=== PATIENT | male | born 1960 | race Caucasian/White ===

== ENCOUNTER → 2019-12-03 08:27 | Outpatient (BNVA) | payer OTHER, SELFPAY | PROVIDERS: PCP Internal Medicine; Referring Provider Internal Medicine; Visit Provider Internal Medicine Endocrinology, Diabetes & Metabolism | DX: Z13.89 Encounter for screening for other disorder (principal) | CPT/HCPCS: 99214 ==

== ENCOUNTER 2019-12-10 08:55 | Outpatient (REF) | payer OTHER, SELFPAY ==
[2019-12-10 09:49] LABS: Anion Gap 13 (12-20); Blood Urea Nitrogen 15 mg/dL (9-16); Calcium 8.6 mg/dL (8.4-10.2); Carbon Dioxide 25 mmol/L (22-29); Chloride 104 mmol/L (96-108); Estimated Glomerular Filt Rate > 60; Glucose Fasting 121 mg/dL (60-99); Potassium 4.4 mmol/l (3.3-5.1); Sodium 138 mmol/L (135-145)
[2019-12-10 10:11] LABS: Free T4 (Free Thyroxine) 0.96 ng/dL (0.71-1.85); Thyroid Stimulating Hormone 1.26 mIU/mL (0.32-4.0)
[2019-12-12 01:11] LABS: Follicle Stimulating Hormone 6.1 mIU/mL (1.6-8.0); Lutenizing Hormone 3.5 mIU/mL (1.6-15.2); Prolactin 15.2 ng/mL (2.0-18.0)
[2019-12-13 18:52] LABS: Sex Hormone Binding Globulin 27 nmol/L (22-77)
[2019-12-15 15:07] LABS: IGF-1 (Somatomedin C) 122 ng/mL (41-279); IGF-1 Z Score (Male) -0.1 SD (-2.0 - +2.0)
[2019-12-16 17:26] LABS: Testosterone, Free 49.9 pg/mL (35.0-155.0); Testosterone, Total 337 ng/dL (250-1100)
== END 2019-12-10 08:56 | disposition home or self-care (01) ==
LOC: HO.LAB 08:55
PROVIDERS: PCP Internal Medicine; Visit Provider Internal Medicine Endocrinology, Diabetes & Metabolism
DX: E22.1 Hyperprolactinemia (principal)
CPT/HCPCS: 80048; 82533; 83001; 83002; 84146; 84270; 84305; 84402; 84403; 84439; 84443

== ENCOUNTER 2019-12-14 09:22 | Outpatient (REF) | payer OTHER, SELFPAY ==
--- NOTE | 2019-12-14 09:40 | MR_ITS ---
EXAMINATION: MR BRAIN WITHOUT AND WITH CONTRAST CLINICAL INFORMATION: Hyperprolactinemia. COMPARISON: MRI studies dating back to 02/21/2017. TECHNIQUE: Multiplanar, multisequential imaging was obtained without and with intravenous administration of contrast. Intravenous contrast: Gadavist 5 mL. FINDINGS: Midline infrasellar soft tissue abnormality measuring approximately 9 x 7 x 6 mm in size is relatively stable with decreased differential enhancement relative to the pituitary gland superiorly. The infundibulum is midline in position. No diffusion abnormalities are identified to suggest an acute infarct. The ventricles are normal in size. No mass effect or midline shift is seen. Nonspecific mild white matter signal changes are stable. No extra-axial fluid collections are noted. The brainstem and cerebellum are normal. On postcontrast imaging, there is no abnormal parenchymal or leptomeningeal enhancement. The craniovertebral junction and marrow signal are normal. The mastoid air cells are aerated. There is mild to moderate mucosal thickening in the ethmoid and maxillary sinuses, more so on the left side. MR/MR head/brain wo/w con IMPRESSION: Stable midline 9 x 7 x 6 mm focus of soft tissue underlying the pituitary gland. Correlation with targeted CT imaging is recommended to better assess for an underlying dehiscence in the bony floor of the sella.
== END 2019-12-14 09:23 | disposition home or self-care (01) ==
LOC: HO.MRI 09:22
PROVIDERS: PCP Internal Medicine; Visit Provider Internal Medicine Endocrinology, Diabetes & Metabolism
DX: E22.1 Hyperprolactinemia (principal)
CPT/HCPCS: 70553; A9585

== ENCOUNTER → 2020-03-06 09:39 | Outpatient (BNVA) | payer OTHER, SELFPAY | PROVIDERS: PCP Internal Medicine; Visit Provider Internal Medicine Endocrinology, Diabetes & Metabolism ==

== ENCOUNTER 2020-04-07 08:08 | Outpatient (REF) | payer OTHER, SELFPAY ==
[2020-04-07 09:09] LABS: MANUAL DIFF FLAG NO
[2020-04-07 09:14] LABS: Basophils Percent Auto 0.2 % (0-2); Eosinophils Absolute Auto 0.1 X10*3/uL (0.0-0.4); Hematocrit 45.5 % (42-52); Hemoglobin 15.6 g/dl (14.0-18.0); Imm Gran Abs Auto 0.01 X10*3/uL (0.00-0.03); Imm Gran Pct Auto 0.2 % (0.0-0.4); Lymphocytes Absolute Auto 1.8 X10*3/uL (1.2-4.9); Lymphocytes Percent Auto 30.2 % (20-40); Mean Corpuscular HGB Conc 34.3 g/dl (31.0-36.0); Mean Corpuscular Hemoglobin 30.4 pg (27.0-33.0); Mean Corpuscular Volume 88.5 fL (80-98); Mean Platelet Volume 10.9 fL (9.4-12.4); Monocytes Absolute Auto 0.6 X10*3/uL (0.1-1.2); Monocytes Percent Auto 9.2 % (2-11); Neutrophils Absolute Auto 3.5 X10*3/uL (2.0-8.3); Neutrophils Percent Auto 59.2 % (45-73); Platelet Count 163 X10*3/uL (160-400); Red Blood Count 5.14 X10*6/uL (4.60-5.80); Red Cell Distribution Width 11.8 % (11.0-16.0)
[2020-04-07 09:23] LABS: Glucose Urine UA NEG (NEG); Leukocyte Esterase Urine NEG (NEG); Nitrite Urine NEG (NEG); PH 6.5 (5.0-8.0); Urine Blood NEG (NEG); Urine Ketones NEG (NEG); Urine Protein NEG (NEG-TRACE)
[2020-04-07 09:25] LABS: Appearance Urine CLEAR; Color Urine YELLOW
[2020-04-07 09:37] LABS: Mucus Urine TRACE /LPF; Squamous Epithelial Cell Urine 1+ /LPF; WBC Urine 0-2 /HPF (0-4)
[2020-04-07 09:43] LABS: Alanine Aminotransferase 17 U/L (0-40); Albumin Level 4.5 g/dL (3.5-5.0); Alkaline Phosphatase 73 U/L (39-117); Anion Gap 10 (12-20); Aspartate Amino Transferase 18 U/L (5-37); Bilirubin Total 2.4 mg/dL (0.0-1.0); Blood Urea Nitrogen 10 mg/dL (9-16); Calcium 9.2 mg/dL (8.4-10.2); Carbon Dioxide 30 mmol/L (22-29); Chloride 101 mmol/L (96-108); Cholesterol 113 mg/dL; Estimated Glomerular Filt Rate > 60; Glucose Fasting 113 mg/dL (60-99); HDL Cholesterol 38 mg/dL; LDL Cholesterol Calculated 56 mg/dl; Potassium 4.3 mmol/L (3.3-5.1); Sodium 137 mmol/L (135-145); Total Protein 7.2 g/dL (6.5-8.0); Triglycerides 97 mg/dL
[2020-04-07 09:58] LABS: TSH reflex Free T4 2.58 uIU/mL (0.32-4.0)
[2020-04-07 10:03] LABS: Creatinine Urine 193.78 mg/dL; Microalbum/Creatinine Ratio Ur 10.8 ug/mg cr
[2020-04-11 15:32] LABS: Adrenocorticotropic Hormone 39 pg/mL (6-50)
[2020-04-12 19:12] LABS: Testosterone, Free 60.9 pg/mL (35.0-155.0); Testosterone, Total 294 ng/dL (250-1100)
== END 2020-04-07 08:09 | disposition home or self-care (01) ==
LOC: HO.LAB 08:08
PROVIDERS: PCP Internal Medicine; Visit Provider Internal Medicine Endocrinology, Diabetes & Metabolism
DX: E22.1 Hyperprolactinemia (principal); E11.9 Type 2 diabetes mellitus without complications; I10 Essential (primary) hypertension; E78.5 Hyperlipidemia, unspecified; E80.6 Other disorders of bilirubin metabolism; I25.10 Atherosclerotic heart disease of native coronary artery without angina pectoris; E34.9 Endocrine disorder, unspecified; E66.9 Obesity, unspecified
CPT/HCPCS: 36415; 80053; 80061; 81001; 82024; 82043; 84146; 84402; 84403; 84443; 85025

== ENCOUNTER → 2020-09-04 10:19 | Outpatient (BNVA) | payer OTHER, SELFPAY | PROVIDERS: PCP Internal Medicine; Visit Provider Internal Medicine Endocrinology, Diabetes & Metabolism ==

== ENCOUNTER 2020-09-05 06:05 | Outpatient (REF) | payer OTHER, SELFPAY ==
[2020-09-05 07:05] LABS: MANUAL DIFF FLAG NO
[2020-09-05 07:11] LABS: Basophils Percent Auto 0.5 % (0-2); Eosinophils Absolute Auto 0.1 X10*3/uL (0.0-0.4); Eosinophils Percent Auto 1.3 % (0-4); Hematocrit 43.4 % (42-52); Hemoglobin 14.8 g/dl (14.0-18.0); Imm Gran Abs Auto 0.03 X10*3/uL (0.00-0.03); Imm Gran Pct Auto 0.5 % (0.0-0.4); Lymphocytes Absolute Auto 2.1 X10*3/uL (1.2-4.9); Lymphocytes Percent Auto 34.2 % (20-40); Mean Corpuscular HGB Conc 34.1 g/dl (31.0-36.0); Mean Corpuscular Hemoglobin 30.3 pg (27.0-33.0); Mean Corpuscular Volume 88.8 fL (80-98); Mean Platelet Volume 11.3 fL (9.4-12.4); Monocytes Absolute Auto 0.6 X10*3/uL (0.1-1.2); Neutrophils Absolute Auto 3.3 X10*3/uL (2.0-8.3); Neutrophils Percent Auto 53.5 % (45-73); Platelet Count 171 X10*3/uL (160-400); Red Blood Count 4.89 X10*6/uL (4.60-5.80); White Blood Count 6.1 X10*3/uL (4.8-10.8)
[2020-09-05 07:16] LABS: Estimated Average Glucose 140 mg/dL; Hemoglobin A1c % 6.5 %
[2020-09-05 07:20] LABS: Color Urine YELLOW; Glucose Urine UA NEG (NEG); Leukocyte Esterase Urine NEG (NEG); Nitrite Urine NEG (NEG); Specific Gravity - Urine 1.025 (1.005-1.025); Urine Blood NEG (NEG); Urine Ketones NEG (NEG); Urine Protein NEG (NEG-TRACE)
[2020-09-05 07:22] LABS: Appearance Urine CLEAR
[2020-09-05 07:37] LABS: Creatinine Urine 157.59 mg/dL
[2020-09-05 07:41] LABS: Alanine Aminotransferase 25 U/L (0-40); Albumin Level 4.3 g/dL (3.5-5.0); Alkaline Phosphatase 76 U/L (39-117); Anion Gap 12 (12-20); Aspartate Amino Transferase 20 U/L (5-37); Bilirubin Total 1.5 mg/dL (0.0-1.0); Blood Urea Nitrogen 11 mg/dL (9-16); Calcium 9.2 mg/dL (8.4-10.2); Carbon Dioxide 28 mmol/L (22-29); Chloride 104 mmol/L (96-108); Cholesterol 139 mg/dL; Estimated Glomerular Filt Rate > 60; Glucose Fasting 136 mg/dL (60-99); HDL Cholesterol 41 mg/dL; LDL Cholesterol Calculated 75 mg/dl; Potassium 4.4 mmol/L (3.3-5.1); Sodium 140 mmol/L (135-145); Total Protein 7.1 g/dL (6.5-8.0); Triglycerides 116 mg/dL
[2020-09-05 08:08] LABS: TSH reflex Free T4 3.89 uIU/mL (0.32-4.0)
[2020-09-05 08:33] LABS: Prostate Specific Antigen 0.54 ng/mL (<0.05-4.0)
[2020-09-06 10:36] LABS: Prolactin 10.3 ng/mL (2.0-18.0)
== END 2020-09-05 06:06 | disposition home or self-care (01) ==
LOC: HO.LAB 06:05
PROVIDERS: Absent Provider Internal Medicine Endocrinology, Diabetes & Metabolism; PCP Internal Medicine; Visit Provider Internal Medicine
DX: E22.1 Hyperprolactinemia (principal); E11.9 Type 2 diabetes mellitus without complications; E78.00 Pure hypercholesterolemia, unspecified; E66.9 Obesity, unspecified; N40.0 Benign prostatic hyperplasia without lower urinary tract symptoms; R97.20 Elevated prostate specific antigen [PSA]; I25.10 Atherosclerotic heart disease of native coronary artery without angina pectoris; E80.6 Other disorders of bilirubin metabolism
CPT/HCPCS: 36415; 80053; 80061; 81003; 82043; 83036; 84146; 84153; 84443; 85025

== ENCOUNTER 2021-05-24 07:15 | Outpatient (REF) | payer OTHER, SELFPAY ==
[2021-05-24 07:41] LABS: MANUAL DIFF FLAG NO
[2021-05-24 08:11] LABS: Basophils Percent Auto 0.3 % (0-2); Eosinophils Absolute Auto 0.1 X10*3/uL (0.0-0.4); Eosinophils Percent Auto 1.5 % (0-4); Hematocrit 44.8 % (42.0-52.0); Hemoglobin 15.2 g/dl (14.0-18.0); Imm Gran Abs Auto 0.02 X10*3/uL (0.00-0.03); Imm Gran Pct Auto 0.3 % (0.0-0.4); Lymphocytes Absolute Auto 2.1 X10*3/uL (1.2-4.9); Lymphocytes Percent Auto 32.4 % (20-40); Mean Corpuscular HGB Conc 33.9 g/dl (31.0-36.0); Mean Corpuscular Hemoglobin 29.5 pg (27.0-33.0); Mean Platelet Volume 10.7 fL (9.4-12.4); Monocytes Absolute Auto 0.6 X10*3/uL (0.1-1.2); Monocytes Percent Auto 9.7 % (2-11); Neutrophils Absolute Auto 3.7 x10*3/uL (2.0-8.3); Neutrophils Percent Auto 55.8 % (45-73); Platelet Count 168 X10*3/uL (160-400); Red Blood Count 5.15 X10*6/uL (4.60-5.80); Red Cell Distribution Width 12.2 % (11.0-16.0); White Blood Count 6.6 X10*3/uL (4.8-10.8)
[2021-05-24 08:25] LABS: Estimated Average Glucose 140 mg/dL; Hemoglobin A1c % 6.5 %
[2021-05-24 08:34] LABS: Alanine Aminotransferase 18 U/L (0-40); Albumin Level 4.4 g/dL (3.5-5.0); Alkaline Phosphatase 72 U/L (39-117); Anion Gap 12 (12-20); Aspartate Amino Transferase 18 U/L (5-37); Bilirubin Total 2.1 mg/dL (0.0-1.0); Blood Urea Nitrogen 15 mg/dL (9-16); Calcium 9.6 mg/dL (8.4-10.2); Carbon Dioxide 28 mmol/L (22-29); Chloride 103 mmol/L (96-108); Cholesterol 129 mg/dL; Estimated Glomerular Filt Rate > 60; Glucose Fasting 135 mg/dL (60-99); HDL Cholesterol 38 mg/dL; LDL Cholesterol Calculated 67 mg/dl; Potassium 4.8 mmol/L (3.3-5.1); Sodium 138 mmol/L (135-145); Total Protein 7.2 g/dL (6.5-8.0); Triglycerides 121 mg/dL
[2021-05-24 08:56] LABS: TSH reflex Free T4 2.59 uIU/mL (0.32-4.0); Vitamin D 25-OH Total 19.4 ng/mL (>30)
[2021-05-24 09:58] LABS: Appearance Urine HAZY; Color Urine YELLOW; Glucose Urine UA NEG (NEG); Leukocyte Esterase Urine NEG (NEG); Nitrite Urine NEG (NEG); Specific Gravity - Urine >= 1.030 (1.005-1.025); Urine Blood NEG (NEG); Urine Ketones NEG (NEG); Urine Protein NEG (NEG-TRACE)
[2021-05-24 10:37] LABS: Creatinine Urine 209.08 mg/dL; Microalbum/Creatinine Ratio Ur 17.2 ug/mg cr
== END 2021-05-24 07:16 | disposition home or self-care (01) ==
LOC: HO.LAB 07:15
PROVIDERS: PCP Internal Medicine; Visit Provider Internal Medicine
DX: E55.9 Vitamin D deficiency, unspecified (principal); E78.00 Pure hypercholesterolemia, unspecified; E11.9 Type 2 diabetes mellitus without complications; I10 Essential (primary) hypertension
CPT/HCPCS: 36415; 80053; 80061; 81003; 82043; 82306; 83036; 84443; 85025

== ENCOUNTER 2021-09-21 06:06 | Outpatient (REF) | payer OTHER, SELFPAY ==
[2021-09-22 21:02] LABS: Prolactin 11.5 ng/mL (2.0-18.0)
== END 2021-09-21 06:07 | disposition home or self-care (01) ==
LOC: HO.LAB 06:06
PROVIDERS: PCP Internal Medicine; Visit Provider Internal Medicine Endocrinology, Diabetes & Metabolism
DX: E22.1 Hyperprolactinemia (principal)
CPT/HCPCS: 36415; 84146

== ENCOUNTER → 2021-09-25 08:21 | Outpatient (BNVA) | payer OTHER, SELFPAY | PROVIDERS: PCP Internal Medicine; Visit Provider Internal Medicine Endocrinology, Diabetes & Metabolism | DX: D49.7 Neoplasm of unspecified behavior of endocrine glands and other parts of nervous system (principal) | CPT/HCPCS: 99212 ==

== ENCOUNTER 2021-11-05 09:36 | Outpatient (REF) | payer OTHER, SELFPAY ==
--- NOTE | ~2021-11-05 | MR_ITS ---
EXAMINATION: MR BRAIN WITHOUT AND WITH CONTRAST CLINICAL INFORMATION: Pituitary adenoma. COMPARISON: Brain MRI 12/14/2019. TECHNIQUE: Multiplanar MR imaging of the brain was performed without and with contrast. A total of 5 mm Gadavist was utilized for this examination. FINDINGS: Dedicated high-resolution imaging through the sella turcica demonstrates a nodular focus of heterogeneous enhancement located at the anterior inferior aspect of the pituitary tissue that bulges into the sphenoid sinus along the sphenoid sinus septum. Overall there has been no substantial change when compared to prior MR imaging from 12/14/2019. The overall height of the pituitary tissue remains within limits of normal variation. There is no suprasellar mass effect or chiasmatic compression. The pituitary stalk is midline. Cavernous sinuses enhance symmetric. Cavernous internal carotid artery flow voids are maintained. Postcontrast images of the whole brain reveal no abnormal mass or enhancement within the intracranial compartment. No intracranial mass effect or midline shift. Lateral and third ventricles are normal. No hydrocephalus. Midline structures including the cervicomedullary junction are normal. No acute bone marrow signal changes. There are a few scattered foci of T2 FLAIR signal hyperintensity within the periventricular white matter. No acute territorial infarct. Intracranial vascular flow voids are grossly maintained. There is no mastoid or middle ear effusion. Mild paranasal sinus disease primarily affecting the ethmoid air cells and maxillary sinuses. MR/MR head/brain wo/w con IMPRESSION: Stable examination. The size of a heterogeneously enhancing intrasellar lesion located at the anterior and inferior aspect of the sella turcica has remained stable when compared to most recent prior brain MRI from 12/14/2019.
== END 2021-11-05 09:37 | disposition home or self-care (01) ==
LOC: HO.MRI 09:36
PROVIDERS: Visit Provider Internal Medicine Endocrinology, Diabetes & Metabolism
DX: D49.7 Neoplasm of unspecified behavior of endocrine glands and other parts of nervous system (principal)
CPT/HCPCS: 70553; A9585

== ENCOUNTER 2021-12-31 06:12 | Outpatient (REF) | payer OTHER, SELFPAY ==
[2021-12-31 06:20] LABS: MANUAL DIFF FLAG NO
[2021-12-31 07:43] LABS: Basophils Percent Auto 0.4 % (0-2); Eosinophils Absolute Auto 0.1 X10*3/uL (0.0-0.4); Eosinophils Percent Auto 0.9 % (0-4); Hematocrit 43.8 % (42.0-52.0); Hemoglobin 15.6 g/dl (14.0-18.0); Imm Gran Abs Auto 0.01 X10*3/uL (0.00-0.03); Imm Gran Pct Auto 0.1 % (0.0-0.4); Lymphocytes Absolute Auto 2.2 X10*3/uL (1.2-4.9); Mean Corpuscular HGB Conc 35.6 g/dl (31.0-36.0); Mean Corpuscular Hemoglobin 30.5 pg (27.0-33.0); Mean Corpuscular Volume 85.7 fL (80.0-98.0); Mean Platelet Volume 11.4 fL (9.4-12.4); Monocytes Absolute Auto 0.5 X10*3/uL (0.1-1.2); Neutrophils Absolute Auto 3.9 x10*3/uL (2.0-8.3); Neutrophils Percent Auto 57.6 % (45-73); Platelet Count 166 X10*3/uL (160-400); Red Blood Count 5.11 X10*6/uL (4.60-5.80); Red Cell Distribution Width 11.6 % (11.0-16.0); White Blood Count 6.8 X10*3/uL (4.8-10.8)
[2021-12-31 08:09] LABS: Estimated Average Glucose 183 mg/dL
[2021-12-31 08:31] LABS: Alanine Aminotransferase 31 U/L (0-40); Albumin Level 4.5 g/dL (3.5-5.0); Alkaline Phosphatase 81 U/L (39-117); Anion Gap 15 (12-20); Aspartate Amino Transferase 18 U/L (5-37); Bilirubin Total 2.2 mg/dL (0.0-1.0); Blood Urea Nitrogen 12 mg/dL (9-16); Calcium 9.4 mg/dL (8.4-10.2); Carbon Dioxide 28 mmol/L (22-29); Chloride 101 mmol/L (96-108); Cholesterol 150 mg/dL; Estimated Glomerular Filt Rate > 60; Glucose Fasting 203 mg/dL (60-99); HDL Cholesterol 37 mg/dL; LDL Cholesterol Calculated 72 mg/dl; Potassium 4.6 mmol/L (3.3-5.1); Sodium 139 mmol/L (135-145); TSH reflex Free T4 3.87 uIU/mL (0.32-4.0); Total Protein 7.3 g/dL (6.5-8.0); Triglycerides 206 mg/dL
[2022-01-01 07:12] LABS: Prolactin 22.2 ng/mL (2.0-18.0)
[2022-01-04 14:52] LABS: Testosterone, Free 54.5 pg/mL (35.0-155.0); Testosterone, Total 308 ng/dL (250-1100)
== END 2021-12-31 06:13 | disposition home or self-care (01) ==
LOC: HO.LAB 06:12
PROVIDERS: Absent Provider Internal Medicine Endocrinology, Diabetes & Metabolism; PCP Internal Medicine; Visit Provider Internal Medicine
DX: E11.9 Type 2 diabetes mellitus without complications (principal); E22.1 Hyperprolactinemia; I10 Essential (primary) hypertension; E78.00 Pure hypercholesterolemia, unspecified
CPT/HCPCS: 36415; 80053; 80061; 83036; 84146; 84402; 84403; 84443; 85025

== ENCOUNTER 2022-01-14 09:09 | Outpatient (REF) | payer OTHER, SELFPAY ==
[2022-01-14 10:13] LABS: Appearance Urine Clear; Color Urine Yellow; Glucose Urine UA Negative (Negative); Leukocyte Esterase Urine Negative (Negative); Nitrite Urine Negative (Negative); PH 5.5 (5.0-9.0); Urine Blood Negative (Negative); Urine Ketones Negative (Negative); Urine Protein Negative (Neg-Trace)
[2022-01-14 11:05] LABS: Creatinine Urine 171.33 mg/dL; Microalbum/Creatinine Ratio Ur 16.3 ug/mg cr
== END 2022-01-14 09:10 | disposition home or self-care (01) ==
LOC: HO.LAB 09:09
PROVIDERS: PCP Internal Medicine; Visit Provider Internal Medicine
DX: E11.9 Type 2 diabetes mellitus without complications (principal); I10 Essential (primary) hypertension
CPT/HCPCS: 81003; 82043

== ENCOUNTER 2022-03-05 16:00 | Outpatient (REF) | payer OTHER, SELFPAY ==
[2022-03-05 17:56] LABS: Alanine Aminotransferase 28 U/L (0-40); Albumin Level 4.3 g/dL (3.5-5.0); Alkaline Phosphatase 83 U/L (39-117); Aspartate Amino Transferase 23 U/L (5-37); Bilirubin Direct 0.6 mg/dL (0.0-0.5); Bilirubin Total 1.9 mg/dL (0.0-1.0)
== END 2022-03-05 16:01 | disposition home or self-care (01) ==
LOC: HO.LAB 16:00
PROVIDERS: PCP Internal Medicine; Visit Provider Internal Medicine Endocrinology, Diabetes & Metabolism
DX: D49.7 Neoplasm of unspecified behavior of endocrine glands and other parts of nervous system (principal)
CPT/HCPCS: 36415; 80076; 84146

== ENCOUNTER 2022-04-25 06:00 | Outpatient (REF) | payer OTHER, SELFPAY ==
[2022-04-25 06:21] LABS: MANUAL DIFF FLAG NO
[2022-04-25 07:40] LABS: Basophils Percent Auto 0.5 % (0-2); Eosinophils Absolute Auto 0.1 X10*3/uL (0.0-0.4); Hematocrit 44.7 % (42.0-52.0); Hemoglobin 15.7 g/dl (14.0-18.0); Imm Gran Abs Auto 0.01 X10*3/uL (0.00-0.03); Imm Gran Pct Auto 0.2 % (0.0-0.4); Lymphocytes Absolute Auto 2.1 X10*3/uL (1.2-4.9); Lymphocytes Percent Auto 34.1 % (20-40); Mean Corpuscular HGB Conc 35.1 g/dl (31.0-36.0); Mean Corpuscular Hemoglobin 30.3 pg (27.0-33.0); Mean Corpuscular Volume 86.1 fL (80.0-98.0); Mean Platelet Volume 11.5 fL (9.4-12.4); Monocytes Absolute Auto 0.5 X10*3/uL (0.1-1.2); Monocytes Percent Auto 8.7 % (2-11); Neutrophils Absolute Auto 3.4 x10*3/uL (2.0-8.3); Neutrophils Percent Auto 55.5 % (45-73); Platelet Count 170 X10*3/uL (160-400); Red Blood Count 5.19 X10*6/uL (4.60-5.80); Red Cell Distribution Width 11.6 % (11.0-16.0); White Blood Count 6.2 X10*3/uL (4.8-10.8)
[2022-04-25 08:10] LABS: Alanine Aminotransferase 25 U/L (0-40); Albumin Level 4.4 g/dL (3.5-5.0); Alkaline Phosphatase 72 U/L (39-117); Anion Gap 14 (12-20); Aspartate Amino Transferase 19 U/L (5-37); Bilirubin Total 3.9 mg/dL (0.0-1.0); Blood Urea Nitrogen 12 mg/dL (9-16); Calcium 9.1 mg/dL (8.4-10.2); Carbon Dioxide 29 mmol/L (22-29); Chloride 100 mmol/L (96-108); Cholesterol 145 mg/dL; Estimated Glomerular Filt Rate > 60; Glucose Fasting 182 mg/dL (60-99); HDL Cholesterol 39 mg/dL; LDL Cholesterol Calculated 81 mg/dl; Potassium 4.4 mmol/L (3.3-5.1); Sodium 139 mmol/L (135-145); Triglycerides 127 mg/dL
[2022-04-25 08:20] LABS: Appearance Urine Clear; Color Urine Yellow; Glucose Urine UA Negative (Negative); Leukocyte Esterase Urine Negative (Negative); Nitrite Urine Negative (Negative); Specific Gravity - Urine 1.015 (1.005-1.025); Urine Blood Negative (Negative); Urine Ketones Trace mg/dL (Negative); Urine Protein Negative (Neg-Trace)
[2022-04-25 08:29] LABS: TSH reflex Free T4 2.72 uIU/mL (0.32-4.0); Vitamin D 25-OH Total 15.5 ng/mL (>30)
[2022-04-25 09:00] LABS: Creatinine Urine 176.27 mg/dL; Microalbum/Creatinine Ratio Ur 14.7 ug/mg cr
[2022-04-25 09:38] LABS: Estimated Average Glucose 177 mg/dL; Hemoglobin A1c % 7.8 %
[2022-04-26 23:19] LABS: Prolactin 22.7 ng/mL (2.0-18.0)
== END 2022-04-25 06:01 | disposition home or self-care (01) ==
LOC: HO.LAB 06:00
PROVIDERS: Absent Provider Internal Medicine Endocrinology, Diabetes & Metabolism; PCP Internal Medicine; Visit Provider Internal Medicine
DX: E55.9 Vitamin D deficiency, unspecified (principal); R30.0 Dysuria; E11.9 Type 2 diabetes mellitus without complications; E78.00 Pure hypercholesterolemia, unspecified; D49.7 Neoplasm of unspecified behavior of endocrine glands and other parts of nervous system; I10 Essential (primary) hypertension
CPT/HCPCS: 36415; 80053; 80061; 81003; 82043; 82306; 83036; 84146; 84443; 85025

== ENCOUNTER 2022-04-30 11:01 | Outpatient (REF) | payer OTHER, SELFPAY ==
--- NOTE | ~2022-04-30 | XR_ITS ---
EXAMINATION: XR FOOT, RIGHT CLINICAL INFORMATION: Pain in right foot. COMPARISON: None available. TECHNIQUE: AP, lateral, and oblique views of the right foot. FINDINGS: There is hallux valgus deformity 1st MTP joint without bony erosive changes. The rest of the visualized joint spaces are preserved. No acute fracture or dislocation seen. The ankle mortise and subtalar joints are normal. Small calcaneal heel and retrocalcaneal enthesophytes are present. The soft tissues are normal. XR/XR foot RT min 3V IMPRESSION: 1. Small calcaneal heel and retrocalcaneal enthesophytes. No visible acute fracture, dislocation or subluxation seen. Especially, there is no abnormality involving the midfoot. 2. Mild hallux valgus deformity 1st MTP joint.
== END 2022-04-30 11:02 | disposition home or self-care (01) ==
LOC: HO.XRAY 11:01
PROVIDERS: PCP Internal Medicine; Visit Provider Internal Medicine
DX: M79.671 Pain in right foot (principal); Z91.81 History of falling
CPT/HCPCS: 73630

== ENCOUNTER 2022-05-03 08:15 | Outpatient (REF) | payer OTHER, SELFPAY ==
[2022-05-05 21:23] LABS: Prolactin 27.3 ng/mL (2.0-18.0)
[2022-05-09 23:23] LABS: Testosterone, Free 35.3 pg/mL (35.0-155.0); Testosterone, Total 229 ng/dL (250-1100)
== END 2022-05-03 08:16 | disposition home or self-care (01) ==
LOC: HO.LAB 08:15
PROVIDERS: PCP Internal Medicine; Visit Provider Internal Medicine Endocrinology, Diabetes & Metabolism
DX: E22.1 Hyperprolactinemia (principal)
CPT/HCPCS: 36415; 84146; 84402; 84403

== ENCOUNTER 2022-05-14 08:32 | Outpatient (REF) | payer OTHER, SELFPAY ==
--- NOTE | ~2022-05-14 | US_ITS ---
EXAMINATION: US ABDOMEN COMPLETE CLINICAL INFORMATION: Other disorders of bilirubin metabolism. COMPARISON: Ultrasound abdomen complete 04/26/2019. TECHNIQUE: Real-time imaging of the abdominal viscera. FINDINGS: PANCREAS: Normal. ABDOMINAL AORTA: The proximal aorta appears normal. The mid and distal segments are not visible due to bowel gas. INFERIOR VENA CAVA: The proximal IVC appears normal. The mid and distal segments are not visible due to bowel gas. LIVER: The liver is enlarged measuring 18.0 cm. The liver contour is normal. There is diffuse increased liver parenchymal echogenicity, consistent with hepatic steatosis. There is focal fatty sparing along the gallbladder fossa. No focal hepatic lesion. There is no intrahepatic biliary duct dilatation seen. GALLBLADDER: Normal. The gallbladder is physiologically distended without evidence of stones, sludge, polyps, wall thickening or pericholecystic fluid. COMMON BILE DUCT: Normal in caliber measuring 0.5 cm in diameter. RIGHT KIDNEY: 3.8 cm thinly septated cyst in the upper pole has increased when compared to the previous study 2.2 x 2.5 x 2.1 cm. No hydronephrosis or renal calculi. The kidney measures 12.5 cm in maximum dimension. LEFT KIDNEY: 1.8 cm simple cyst in the mid kidney. No imaging follow-up is recommended. No hydronephrosis or renal calculi. The kidney measures 13.0 cm in maximum dimension. SPLEEN: Normal. The spleen measures 11.1 cm in maximum dimension. FREE FLUID: None. US/US abdomen complete IMPRESSION: Thinly septated cyst in the right mid to upper kidney has increased in size compared to 04/26/2019. Recommend further evaluation with renal mass protocol CT or MRI without and with contrast.
== END 2022-05-14 08:33 | disposition home or self-care (01) ==
LOC: HO.US 08:32
PROVIDERS: PCP Internal Medicine; Visit Provider Internal Medicine
DX: E80.6 Other disorders of bilirubin metabolism (principal)
CPT/HCPCS: 76700

== ENCOUNTER 2022-06-21 06:11 | Outpatient (REF) | payer OTHER, SELFPAY ==
[2022-06-23 10:09] LABS: Prolactin 11.7 ng/mL (2.0-18.0)
== END 2022-06-21 06:12 | disposition home or self-care (01) ==
LOC: HO.LAB 06:11
PROVIDERS: PCP Internal Medicine; Visit Provider Internal Medicine Endocrinology, Diabetes & Metabolism
DX: D49.7 Neoplasm of unspecified behavior of endocrine glands and other parts of nervous system (principal)
CPT/HCPCS: 36415; 84146

== ENCOUNTER → 2022-06-28 11:27 | Outpatient (BNVA) | payer OTHER, SELFPAY | PROVIDERS: PCP Internal Medicine; Visit Provider Internal Medicine Endocrinology, Diabetes & Metabolism | DX: D49.7 Neoplasm of unspecified behavior of endocrine glands and other parts of nervous system (principal) | CPT/HCPCS: 99212 ==

== ENCOUNTER 2022-07-05 09:26 | Outpatient (REF) | payer OTHER, SELFPAY ==
--- NOTE | ~2022-07-05 | MR_ITS ---
EXAMINATION: MR ABDOMEN WITHOUT AND WITH CONTRAST CLINICAL INFORMATION: Septated right renal cyst. COMPARISON: Abdominal ultrasound 05/14/2022 TECHNIQUE: MR abdomen was performed without and with use of 10 mL intravenous Gadavist gadolinium contrast. Postcontrast images are performed in multiphase dynamic sequences. Imaging was performed in 3 planes. FINDINGS: LUNG BASES: The visualized lung bases are unremarkable. LIVER, GALLBLADDER, AND BILIARY TREE: There is signal loss in the opposed phase dual echo images suggesting the presence of hepatic steatosis. The liver is otherwise normal in size and shape. No focal liver lesion. Normal appearance of the gallbladder. No biliary ductal dilatation. PANCREAS: Unremarkable. SPLEEN: Normal. ADRENAL GLANDS: Normal. KIDNEYS AND URETERS: The kidneys are normal in size, shape, and enhance symmetrically. No hydronephrosis. No perinephric stranding. Corresponding to the lesion in question in the anterior mid to upper right kidney, there is a 2.9 x 2.3 x 2.4 cm cortical cyst (4:26) with a few thin internal septations and no evidence of measurable enhancement nor soft tissue nodules on postcontrast images, classified as a Bosniak 2. In the posterior surface of the lower right kidney, there is a 1.0 cm simple T2 bright Bosniak 1 cyst. In the posteromedial surface of the mid left kidney, there is a 1.8 cm T2 bright cyst with a few very faint thin peripheral septations and no measurable enhancement or solid nodules, classified as a Bosniak 2. No solid renal lesions. GASTROINTESTINAL TRACT: No abnormal dilatation in the included portions of the bowel. Colonic diverticulosis without significant pericolonic inflammatory changes in the included portions of the bowel. ABDOMINAL WALL: No significant hernia is appreciated. LYMPH NODES: No lymphadenopathy. VASCULAR: Unremarkable. OSSEOUS STRUCTURES: No acute or aggressive-appearing osseous findings. Mild degenerative changes of the spine. MR/MR abdomen wo/w con IMPRESSION: 1. Bilateral Bosniak 1 and Bosniak 2 renal cysts. No imaging follow-up recommended. 2. Hepatic steatosis.
== END 2022-07-05 09:27 | disposition home or self-care (01) ==
LOC: HO.MRI 09:26
PROVIDERS: PCP Internal Medicine; Visit Provider Internal Medicine
DX: N28.1 Cyst of kidney, acquired (principal)
CPT/HCPCS: 74183; A9585

== ENCOUNTER 2022-08-13 10:37 | Outpatient (REF) | payer OTHER, SELFPAY ==
[2022-08-13 13:28] LABS: Appearance Urine Clear; Color Urine Yellow; Glucose Urine UA >=1000 mg/dL (Negative); Leukocyte Esterase Urine Negative (Negative); Nitrite Urine Negative (Negative); PH 5.5 (5.0-9.0); Specific Gravity - Urine >= 1.030 (1.005-1.025); UMIC TRIGGER UACC YES; Urine Blood Negative (Negative); Urine Ketones Trace mg/dL (Negative); Urine Protein Negative (Neg-Trace)
[2022-08-13 13:35] LABS: Bacteria Urine None Seen (None Seen); Hyaline Casts Urine 0-2 /LPF (0-2); RBC Urine 0-2 /HPF (0-2); Squamous Epithelial Cell Urine 0-2 /HPF (0-2); WBC Urine 0-5 /HPF (0-5)
[2022-08-13 13:36] LABS: MANUAL DIFF FLAG NO
[2022-08-13 13:42] LABS: Basophils Percent Auto 0.4 % (0-2); Eosinophils Absolute Auto 0.1 X10*3/uL (0.0-0.4); Hematocrit 44.9 % (42.0-52.0); Hemoglobin 15.4 g/dl (14.0-18.0); Imm Gran Abs Auto 0.02 X10*3/uL (0.00-0.03); Imm Gran Pct Auto 0.3 % (0.0-0.4); Lymphocytes Absolute Auto 1.9 X10*3/uL (1.2-4.9); Lymphocytes Percent Auto 28.7 % (20-40); Mean Corpuscular HGB Conc 34.3 g/dl (31.0-36.0); Mean Corpuscular Hemoglobin 30.1 pg (27.0-33.0); Mean Corpuscular Volume 87.7 fL (80.0-98.0); Mean Platelet Volume 11.7 fL (9.4-12.4); Monocytes Absolute Auto 0.5 X10*3/uL (0.1-1.2); Monocytes Percent Auto 7.7 % (2-11); Neutrophils Absolute Auto 4.2 x10*3/uL (2.0-8.3); Neutrophils Percent Auto 61.9 % (45-73); Platelet Count 183 X10*3/uL (160-400); Red Blood Count 5.12 X10*6/uL (4.60-5.80); Red Cell Distribution Width 11.7 % (11.0-16.0); White Blood Count 6.8 X10*3/uL (4.8-10.8)
[2022-08-13 14:02] LABS: Alanine Aminotransferase 30 U/L (0-40); Albumin Level 4.4 g/dL (3.5-5.0); Alkaline Phosphatase 112 U/L (39-117); Aspartate Amino Transferase 20 U/L (5-37); Bilirubin Direct 0.3 mg/dL (0.0-0.5); Bilirubin Total 1.5 mg/dL (0.0-1.0); Total Protein 7.3 g/dL (6.5-8.0)
[2022-08-13 14:26] LABS: TSH reflex Free T4 1.98 uIU/mL (0.32-4.0); Vitamin D 25-OH Total 51.9 ng/mL (>30)
[2022-08-13 14:27] LABS: Estimated Average Glucose 174 mg/dL; Hemoglobin A1c % 7.7 %
[2022-08-13 14:29] LABS: Alanine Aminotransferase 30 U/L (0-40); Albumin Level 4.4 g/dL (3.5-5.0); Alkaline Phosphatase 110 U/L (39-117); Anion Gap 15 (12-20); Aspartate Amino Transferase 25 U/L (5-37); Bilirubin Total 1.5 mg/dL (0.0-1.0); Blood Urea Nitrogen 15 mg/dL (9-16); Calcium 9.7 mg/dL (8.4-10.2); Carbon Dioxide 26 mmol/L (22-29); Chloride 100 mmol/L (96-108); Cholesterol 135 mg/dL; Estimated Glomerular Filt Rate > 60; Glucose Fasting 371 mg/dL (60-99); HDL Cholesterol 36 mg/dL; LDL Cholesterol Calculated 55 mg/dl; Potassium 4.6 mmol/L (3.3-5.1); Sodium 136 mmol/L (135-145); Total Protein 7.3 g/dL (6.5-8.0); Triglycerides 223 mg/dL
[2022-08-13 15:30] LABS: Creatinine Urine 108.72 mg/dL; Microalbum/Creatinine Ratio Ur 18.3 ug/mg cr
== END 2022-08-13 10:38 | disposition home or self-care (01) ==
LOC: HO.10HDL 10:37
PROVIDERS: Internal Medicine; Visit Provider Internal Medicine
DX: E11.9 Type 2 diabetes mellitus without complications (principal); E78.00 Pure hypercholesterolemia, unspecified; I10 Essential (primary) hypertension; E55.9 Vitamin D deficiency, unspecified; E80.6 Other disorders of bilirubin metabolism
CPT/HCPCS: 36415; 80053; 80061; 80076; 81001; 82043; 82248; 82306; 83036; 84443; 85025

== ENCOUNTER 2022-09-13 09:39 | Outpatient (AMB) | payer OTHER, SELFPAY ==
[2022-09-13 09:40] VITALS: BP 128/82; PULSE 62; O2SAT 98; BMI 34.2
--- NOTE | 2022-09-13 09:40 | MHC.PC.OV ---
Vital Signs 09/13/22 09:40 Height 5 ft 10 in Weight 238 lb 8 oz BMI 34.2 BP 128/82 Blood Pressure Location Lt brachial Position Sitting Pulse 62 Pulse Source Pulse Oximeter Pulse Oximetry (%) 98 Oxygen Delivery Method Room Air Intake Visit Reasons: [facility] f/u Business Improvement Manager Required: No Accompanied by: Self / Same As Patient Allergies No Known Allergies Allergy (Verified 09/13/22 10:02) Medication List - Last Reconciled 09/13/22 by Martin Curry MD aspirin 81 mg PO DAILY atorvastatin 20 mg PO DAILY blood pressure monitor As directed - take BP once daily as instructed blood pressure test kit-large As directed blood sugar diagnostic (FreeStyle Lite Strips) DIRECTED-TEST 3 TIMES A DAY - DX: E11.9 blood-glucose meter (FreeStyle Lite Meter kit) As directed cabergoline 0.25 mg (1/2 x 0.5 mg) PO QWEEK lancets (FreeStyle Lancets) As directed- test 3 times a day - Dx: E11.9 linagliptin (Tradjenta) 5 mg PO QAM 30 days metformin 500 mg PO BID metoprolol succinate ER 50 mg PO DAILY nitroglycerin 0.4 mg sublingual DIRECTED semaglutide (Ozempic) 0.25 mg (0.2 mL) subcut QWEEK 4 weeks sildenafil 100 mg PO DAILY PRN 30 days Tobacco use date assessed: 09/13/22 Dental Screening Dental Screen Date: 09/13/22 Did you have a dental visit in the last 12 months?: Yes Did you have a dental problem in the last 6 months where you did not have access to dental care?: No Was dental information given to patient?: Patient has dentist HPI [facility] f/u HPI Details Patient comes in today for his follow up visit States that he feels okay He denies any headaches or dizziness Denies any chest pains, no SOB No nausea/vomiting, no abdominal pain No change in bowel habits noted Had his follow-up labs done last month - to discuss his results Would also now like to see if he can try Ozempic for his diabetes and to help him lose some weight PFSH Medical History Benign essential hypertension CAD (coronary artery disease) Diabetes mellitus Diabetes type 2, controlled Dyslipidemia Elevated PSA Erectile dysfunction Hyperbilirubinemia Hyperprolactinemia Hypotestosteronism Obesity (BMI 30-39.9) Pituitary tumor Pure hypercholesterolemia Surgical History History of colonoscopy Hx of angioplasty Family History Father Prostate cancer Mother CVD (cardiovascular disease) Social History Household Members: Family and Children Housing: House Alcohol intake: never Patient Tobacco Use Status: Former Tobacco user Tobacco use type: Cigarette Cigarette Packs Per Day: 1 Cigarettes Per Day: 20.0 e-Cigarette/Vaping Use: Never Used Second Hand Smoke Exposure: Yes service: No Current occupational status: unemployed Cognitive needs: No Hearing needs: No Vision needs: No Questionnaire PHQ-9 Over the last 2 weeks, how often have you been bothered by any of the following problems? 1. Little interest or pleasure in doing things: not at all 2. Feeling down, depressed, or hopeless: not at all 3. Trouble falling or staying asleep, or sleeping too much: not at all 4. Feeling tired or having little energy: not at all 5. Poor appetite or overeating: not at all 6. Feeling bad about yourself - or that you are a failure or have let yourself or your family down: not at all 7. Trouble concentrating on things, such as reading the newspaper or watching television: not at all 8. Moving or speaking so slowly that other people could have noticed. Or the opposite - being so fidgety or restless that you have been moving around a lot more than usual: not at all 9. Thoughts that you would be better off or of hurting yourself in some way: not at all Total score: 0 Depression Screening Interpretation: Negative 12751 - PHQ-9 Billing: Yes Source: Developed by Drs. Willie Brand, Jaki Landa, Lincoln Real and colleagues, with an educational tricia from [employer]. Thrive Questionnaire Date Thrive assessed: 09/13/22 I am a: Patient What is your living situation today?: I have a steady place to live Within the past 12 months, did the food you bought not last and you didn't have the money to get more?: Never true Within the past 12 months, did you worry whether your food would run out before you got money to buy more?: Never true Do you have trouble paying for medicines?: No Do you have trouble getting transportation to medical appointments?: No Do you have trouble paying your heating and electricity bill?: No Do you have trouble taking care of your child, family member or friend?: No Do you have trouble with day-to-day activities such as bathing, preparing meals, shopping, managing finances, etc.?: No Are you currently unemployed and looking for a job?: No Are you interested in more education?: No Please select the resources that you would like help with: None Currently or been in a relationship where the following occur: no concerns reported AUDIT C Alcohol Use Questionnaire (AUDIT-C) 1. How often do you have a drink containing alcohol?: Never 3. How often do you have six or more drinks on one occasion?: Never Total Score: 0 Score Reviewed/Action Taken: Yes CHICHO-7 AMB Questionnaire CHICHO-7 Date CHICHO - 7 assessed: 09/13/22 Feeling nervous, anxious, or on edge: 0 = Not at all Not being able to stop or control worryin = Not at all Worrying too much about different things: 0 = Not at all Trouble relaxin = Not at all Being so restless that it is hard to sit still: 0 = Not at all Becoming easily annoyed or irritable: 0 = Not at all Feeling afraid as if something awful might happen: 0 = Not at all Total CHICHO-7 score (0-4 normal; 5-9 mild; 10-14 moderate; 15-21 severe): 0 Source: Developed by Drs. Willie Brand, Jaki Landa, Lincoln Real and colleagues, with an educational tricia from [employer]. Review of Systems Const Denies chills, Denies fatigue, Denies fever(s) and Denies headache(s) ENT Denies dysphagia, Denies dizziness, Denies otalgia, Denies headache(s), Denies odynophagia and Denies sore throat Card Denies chest pain, Denies palpitations and Denies dyspnea Resp Denies cough and Denies dyspnea GI Denies abdominal pain, Denies constipation, Denies dysphagia, Denies heartburn, Denies diarrhea, Denies nausea, Denies odynophagia and Denies vomiting Denies dysuria, Denies nocturia and Denies urinary frequency Neuro Denies dizziness and Denies headache(s) Endo Denies fatigue and Denies palpitations Physical exam (Primary Care) Vital Signs: Last Vital Signs Pulse 62 09/13/22 09:40 BP 128/82 09/13/22 09:40 Pulse Ox 98 09/13/22 09:40 Oxygen Delivery Method Room Air 09/13/22 09:40 BMI result Body Mass Index 34.2 Tobacco/Smoking Status: Tobacco use Status Tobacco use date assessed 09/13/22 09/13/22 09:46 Patient Tobacco Use Status Former Tobacco user 09/13/22 09:46 Tobacco use type Cigarette 09/13/22 09:46 e-Cigarette/Vaping Use Never Used 09/13/22 09:46 PHQ-9: PHQ-9 Score PHQ-9: Total score 0 09/15/22 16:58 Depression Screening Interpretation: Negative Thrive Assessment: Date of Thrive Assessment Date Thrive assessed 09/13/22 09/13/22 09:46 Currently or been in a relationship where the following occur: no concerns reported Const General: no acute distress and alert HENMT Ears: TM's normal bilaterally and EAC's normal Throat: Yes posterior oropharynx normal and Yes tonsils normal (no TP congestion) Neck Neck: Yes no lymphadenopathy and Yes supple Resp Auscultation: clear to auscultation bilaterally, no rales and no wheezes Cardio Rate: regular rate Rhythm: regular rhythm Heart sounds: no murmurs GI Palpation (GI): Soft to palpation and nontender Auscultation: normal bowel sounds Skin General skin exam: no rashes or lesions noted Extrem General: Yes no clubbing, cyanosis or edema Results Reviewed Results Reviewed: Laboratory Tests 08/13/22 08/13/22 08/13/22 10:42 10:42 10:42 WBC 6.8 Hgb 15.4 Hct 44.9 Plt Count 183 Sodium 136 Potassium 4.6 Estimated GFR > 60 Fasting Glucose 371 H* Hemoglobin A1c % 7.7 Calcium 9.7 D Total Bilirubin 1.5 H Direct Bilirubin AST 25 ALT 30 Triglycerides 223 Cholesterol 135 LDL Cholesterol, Calc 55 HDL Cholesterol 36 25-OH Vitamin D Total 51.9 TSH 1.98 Ur Specific [place] Urine Protein Urine Glucose (UA) Urine Blood Microalb/Creat Ratio 08/13/22 08/13/22 08/13/22 10:42 10:46 10:46 WBC Hgb Hct Plt Count Sodium Potassium Estimated GFR Fasting Glucose Hemoglobin A1c % Calcium Total Bilirubin Direct Bilirubin 0.3 AST ALT Triglycerides Cholesterol LDL Cholesterol, Calc HDL Cholesterol 25-OH Vitamin D Total TSH Ur Specific [place] >= 1.030 H Urine Protein Negative Urine Glucose (UA) >=1000 H Urine Blood Negative Microalb/Creat Ratio 18.3 Assessment and Plan Assessment & Plan (1) Diabetes mellitus: Code(s): E11.9 - Type 2 diabetes mellitus without complications Qualifiers: Diabetes mellitus complication status: without complication Diabetes mellitus extermination supervisor insulin use: without chcf use Diabetes mellitus type: type 2 Qualified Code(s): E11.9 - Type 2 diabetes mellitus without complications Plan: HgbA1c was at 7.7% on his labs done last month (was at 7.8% a few months ago) - goal is < 7.0% Reinforced diabetic diet Continue Metformin 500 mg BID and Tradjenta 5 mg QD Wanted to try Ozempic previously (more to help him lose weight) but his insurance would not cover the Rx unless he has tried some other formulary alternatives first - ws then started on Tradjenta, which he has been taking for over 3 months now Per request, will try starting him again on Ozempic 0.25 mg once a week; patient is instructed to stop taking his Tradjenta if he is able to get Ozempic covered this time by his insurance company (2) CAD (coronary artery disease): Code(s): I25.10 - Atherosclerotic heart disease of [place] coronary artery without angina pectoris Qualifiers: Associated angina: without angina Coronary Disease-Associated Artery/Lesion type: [place] artery [place] vs. transplanted heart: [place] heart Qualified Code(s): I25.10 - Atherosclerotic heart disease of [place] coronary artery without angina pectoris Plan: Asymptomatic - patient has NTG 0.4 mg sublingual tablets to take PRN for chest? pain although he states that he has not had to take them in a while now Continue low dose Aspirin 81 mg QD and Metoprolol ER 50 mg QD Follow-up with cardiology (Dr. Laws) as scheduled Had a repeat Dobutamine stress test done a couple of years ago by cardiology and was reportedly advised that there are no acute abnormalities and to continue with aggressive risk reduction for primary prevention (3) Pure hypercholesterolemia: Code(s): E78.00 - Pure hypercholesterolemia, unspecified Plan: Results of his labs done last month reviewed and discussed with patient Reinforced low cholesterol diet Continue Atorvastatin 20 mg QD Will recheck labs in 4 months for follow up (4) Benign essential hypertension: Code(s): I10 - Essential (primary) hypertension Plan: Reinforced low sodium diet - goal is systolic BP of at least 130 mm or less Continue Metoprolol ER 50 mg QD Patient reminded to continue monitoring his blood pressure regularly (5) Hyperprolactinemia: Code(s): E22.1 - Hyperprolactinemia Plan: Continue 0.25 mg of Cabergoline weekly His prolactin level is again elevated on his recent labs (was normal when checked back in February 2022) Follow up with endocrinology as scheduled (6) Pituitary tumor: Code(s): D49.7 - Neoplasm of unspecified behavior of endocrine glands and other parts of nervous system Plan: Patient has an incidentally found questionable pituitary tumor; repeat MRI sella protocol did not show any pituitary tumor or abnormality, with normal stalk Neurosurgeon reviewed images and agreed that the pituitary gland does not have any pathology and that the sella floor is intact and the stalk is not deviated Repeat MRI in November 2019 showed that the midline infrasellar soft tissue abnormality measuring approximately 9 x 7 x 6 mm in size is relatively stable Both ENT and neurosurgery recommended NO surgery and the current plan remains continued observation Follow-up with endocrinology as scheduled (7) Hyperbilirubinemia: Code(s): E80.6 - Other disorders of bilirubin metabolism Plan: Patient has been and remains asymptomatic Abdominal US done a couple of years ago came back normal but due to his recently increasing bilirubin level again (along with direct bilirubin) Repeat abdominal US done in late April 2022 revealed findings of hepatic steatosis; the liver is enlarged measuring 18.0 cm.and liver contour is normal. There is diffuse increased liver parenchymal echogenicity consistent with hepatic steatosis. There is focal fatty sparing along the gallbladder fossa. No focal hepatic lesion. There is no intrahepatic biliary duct dilatation seen Advised that losing weight should help get this improved gradually (8) Renal cyst, acquired, right: Code(s): N28.1 - Cyst of kidney, acquired Plan: Patient also had some thinly septated cysts seen in the right mid to upper kidney, which have increased in size compared to 04/26/2019 and further evaluation with renal mass protocol CT or MRI without and with contrast was recommended An abdominal MRI done a couple of months ago revealed (+) bilateral Bosniak 1 and Bosniak 2 renal cysts for which no imaging follow-up are recommended (9) Erectile dysfunction: Code(s): N52.9 - Male erectile dysfunction, unspecified Qualifiers: Erectile dysfunction type: unspecified Qualified Code(s): N52.9 - Male erectile dysfunction, unspecified Plan: Continue Viagra 100 mg QD PRN as instructed (10) Obesity (BMI 30-39.9): Code(s): E66.9 - Obesity, unspecified Plan: Reinforced diet/exercise as tolerated/lose weight Plan Follow up in 4 months Orders: Orders Complete Blood Count Auto Diff 4 Months I10 - Essential (primary) hypertension Comprehensive [place]. Panel Fast 4 Months E78.00 - Pure hypercholesterolemia, unspecified Lipid Panel 4 Months E78.00 - Pure hypercholesterolemia, unspecified Hemoglobin A1c 4 Months E11.9 - Type 2 diabetes mellitus without complications Microalbumin, Random (w Creat) 4 Months E11.9 - Type 2 diabetes mellitus without complications UA CC w/rflx Micro + Cult 4 Months R30.0 - Dysuria TSH reflex Free T4 4 Months E78.00 - Pure hypercholesterolemia, unspecified Vitamin D 25-OH Total 4 Months E55.9 - Vitamin D deficiency, unspecified Medications: Changed From semaglutide (Ozempic) for 4 weeks 0.25 mg (0.2 mL) subcut QWEEK 4 weeks 1.5 mL 2RF To semaglutide for 4 weeks 0.25 mg (0.2 mL) subcut QWEEK 1.5 mL 3RF 4 weeks Coding Level of Care Code Est Pt Level 4 (08859) Diagnoses Diabetes mellitus E11.9 Diabetes mellitus complication status: without complication Diabetes mellitus extermination supervisor insulin use: without chcf use Diabetes mellitus type: type 2 CAD (coronary artery disease) I25.10 Associated angina: without angina Coronary Disease-Associated Artery/Lesion type: [place] artery [place] vs. transplanted heart: [place] heart Pure hypercholesterolemia E78.00 Benign essential hypertension I10 Hyperprolactinemia E22.1 Pituitary tumor D49.7 Hyperbilirubinemia E80.6 Renal cyst, acquired, right N28.1 Erectile dysfunction N52.9 Erectile dysfunction type: unspecified Obesity (BMI 30-39.9) E66.9
== END 2022-09-13 10:17 | disposition home or self-care (01) ==
PROVIDERS: PCP Internal Medicine; Visit Provider Internal Medicine
DX: E11.9 Type 2 diabetes mellitus without complications (principal); I10 Essential (primary) hypertension; E22.1 Hyperprolactinemia; E80.6 Other disorders of bilirubin metabolism; I25.10 Atherosclerotic heart disease of native coronary artery without angina pectoris; E78.00 Pure hypercholesterolemia, unspecified; D49.7 Neoplasm of unspecified behavior of endocrine glands and other parts of nervous system; N28.1 Cyst of kidney, acquired; N52.9 Male erectile dysfunction, unspecified; E66.9 Obesity, unspecified
CPT/HCPCS: 99214

== ENCOUNTER 2022-11-06 07:29 | Day surgery (SDC) | payer OTHER, SELFPAY ==
--- NOTE | 2022-11-05 09:06 | HO.ANESPROP2 ---
Documented by User: Melania Vigil NP 11/05/22 09:17 HPI - Anesthesia Eval Consult details Narrative: 62yo M for Colonoscopy CAD with stent x 1 2014. No CP/SOB with yardwork. Very rare nitro. Less than every six months Has not started ozempic. PMFSH Active Problems Active Problems: All Active Problems (Updated 11/05/22 @ 07:43 by Ashely Breaux, RN) Renal cyst, acquired, right (Acute) Status post fall (Acute) Right foot pain (Acute) DMII (diabetes mellitus, type 2) (Acute) HTN (hypertension) (Acute) Obese (Acute) Diabetes mellitus (Acute) Erectile dysfunction (Acute) Hypotestosteronism (Acute) Hyperbilirubinemia (Acute) Elevated PSA (Acute) Pure hypercholesterolemia (Acute) Benign essential hypertension (Acute) CAD (coronary artery disease) (Acute) Dyslipidemia (Acute) Diabetes type 2, controlled (Acute) Obesity (BMI 30-39.9) (Acute) Pituitary tumor (Acute) Hyperprolactinemia (Acute) Past Medical History Medical History (Updated 11/05/22 @ 07:43 by Ashely Breaux RN) Erectile dysfunction Hypotestosteronism Hyperbilirubinemia Elevated PSA Pure hypercholesterolemia Benign essential hypertension CAD (coronary artery disease) Dyslipidemia Diabetes type 2, controlled Obesity (BMI 30-39.9) Pituitary tumor Hyperprolactinemia Family History Family History Father Prostate cancer Mother CVD (cardiovascular disease) Surgical History Surgical History History of colonoscopy Hx of angioplasty Social History Social History Household Members: Family and Children Housing: House Alcohol intake: never Patient Tobacco Use Status: Former Tobacco user Tobacco use type: Cigarette Cigarette Packs Per Day: 1 Cigarettes Per Day: 20.0 e-Cigarette/Vaping Use: Never Used Second Hand Smoke Exposure: Yes Are you DNR?: No Advance Directives: No Advance Directives Information Provided: Yes service: No Current occupational status: unemployed Cognitive needs: No Hearing needs: No Vision needs: No Meds Allergies Allergy/AdvReac Type Severity Reaction Status Date / Time No Known Allergies Allergy Verified 09/13/22 10:02 Exam Exam Date and Time: November 05, 2022 09 Pertinent Lab Results Pertinent Lab Results: Laboratory Tests 08/13/22 10:42 WBC 6.8 Hgb 15.4 Hct 44.9 Plt Count 183 Sodium 136 Potassium 4.6 Chloride 100 Carbon Dioxide 26 BUN 15 Creatinine 0.95 Assessment and Plan Assessment Anesthesia Assessment: Chart Reviewed Documented by User: Adolfo Vasquez MD 11/06/22 08:17 [facility] Past Medical History Medical History (Updated 11/05/22 @ 07:43 by Ashely Breaux RN) Erectile dysfunction Hypotestosteronism Hyperbilirubinemia Elevated PSA Pure hypercholesterolemia Benign essential hypertension CAD (coronary artery disease) Dyslipidemia Diabetes type 2, controlled Obesity (BMI 30-39.9) Pituitary tumor Hyperprolactinemia Family History Family History Father Prostate cancer Mother CVD (cardiovascular disease) Family history of problems with anesthesia: No Surgical History Surgical History History of colonoscopy Hx of angioplasty History of Problems with Anesthesia: No Social History Social History Household Members: Family and Children Housing: House Alcohol intake: never Patient Tobacco Use Status: Former Tobacco user Tobacco use type: Cigarette Cigarette Packs Per Day: 1 Cigarettes Per Day: 20.0 e-Cigarette/Vaping Use: Never Used Second Hand Smoke Exposure: Yes Are you DNR?: No Advance Directives: No Advance Directives Information Provided: Yes service: No Current occupational status: unemployed Cognitive needs: No Hearing needs: No Vision needs: No Meds Allergies Allergy/AdvReac Type Severity Reaction Status Date / Time No Known Allergies Allergy Verified 09/13/22 10:02 Exam Airway Mallampati Class: II TM Dist: >3cm Neck ROM: Full Heart: rrr Lungs: cta Assessment and Plan Final Anesthetic Review Family History of Problems with Anesthesia: No History of Problems with Anesthesia: No NPO: Yes ASA Class: III Final Preanesthetic Review: No Changes in Pt Med Stat, Meds/Allgs Chart Reviewed, Consent Obtained/Reviewed and Anes Risks/Benef Reviewed Patient Risk: Intermediate Procedure Risk: Low Anesthetic Plan Anesthetic Plan: MAC: and Agree w/ Assess. and Plan Disposition: Standard PACU
[2022-11-06 07:53] VITALS: BMI 36.5
[2022-11-06 07:54] LABS: Glucose, Whole Blood 140 mg/dL (60-115)
[2022-11-06 07:55] VITALS: BP 124/73; PULSE 58; RESP 18; TEMP 36.4; O2SAT 97
[2022-11-06] MEDS: Lactated Ringers 1,000 ML 100 ML IVCONT (08:12)
--- NOTE | 2022-11-06 09:04 | P.CONAN_ITS ---
[facility] Active Problems Active Problems: All Active Problems (Updated 11/05/22 @ 07:43 by Ashely Breaux RN) Renal cyst, acquired, right (Acute) Status post fall (Acute) Right foot pain (Acute) DMII (diabetes mellitus, type 2) (Acute) HTN (hypertension) (Acute) Obese (Acute) Diabetes mellitus (Acute) Erectile dysfunction (Acute) Hypotestosteronism (Acute) Hyperbilirubinemia (Acute) Elevated PSA (Acute) Pure hypercholesterolemia (Acute) Benign essential hypertension (Acute) CAD (coronary artery disease) (Acute) Dyslipidemia (Acute) Diabetes type 2, controlled (Acute) Obesity (BMI 30-39.9) (Acute) Pituitary tumor (Acute) Hyperprolactinemia (Acute) Past Medical History Medical History Erectile dysfunction Hypotestosteronism Hyperbilirubinemia Elevated PSA Pure hypercholesterolemia Benign essential hypertension CAD (coronary artery disease) Dyslipidemia Diabetes type 2, controlled Obesity (BMI 30-39.9) Pituitary tumor Hyperprolactinemia Family History Family History Father Prostate cancer Mother CVD (cardiovascular disease) Family history of problems with anesthesia: No Surgical History Surgical History History of colonoscopy Hx of angioplasty History of Problems with Anesthesia: No Social History Social History Household Members: Family and Children Housing: House Alcohol intake: never Patient Tobacco Use Status: Former Tobacco user Tobacco use type: Cigarette Cigarette Packs Per Day: 1 Cigarettes Per Day: 20.0 e-Cigarette/Vaping Use: Never Used Second Hand Smoke Exposure: Yes Are you DNR?: No Advance Directives: No Advance Directives Information Provided: Yes service: No Current occupational status: unemployed Cognitive needs: No Hearing needs: No Vision needs: No Meds Allergies Allergy/AdvReac Type Severity Reaction Status Date / Time No Known Allergies Allergy Verified 09/13/22 10:02 Active Medications: Current Medications Lactated Ringer's (Lr) 1,000 mls @ 100 mls/hr IVCONT .Q10H BENNETT Last Admin: 11/06/22 08:12 Dose: 100 mls/hr Sodium Biphosphate/Sodium Phosphate (Sodium Phosphate,[place]-Dibasic 133 Ml Enema) 133 ml DC ONCE PRN PRN Reason: Poor Colonoscopy Prep Results Exam Exam Date and Time: November 06, 2022903 Height,Weight and Vital Signs: Height 5 ft 8 in Weight 108.862 kg Last Vital Signs Temp 97.5 F 11/06/22 07:55 Pulse 58 11/06/22 07:55 Resp 18 11/06/22 07:55 BP 124/73 11/06/22 07:55 Pulse Ox 97 11/06/22 07:55 O2 Del Method Room Air 11/06/22 07:55 Pertinent Lab Results Pertinent Lab Results: Laboratory Tests 11/06/22 07:50 POC Glucose 140 H Airway Mallampati Class: II TM Dist: >3cm Neck ROM: Full Heart: RRR Lungs: CTA Assessment and Plan Assessment Anesthesia Assessment: Anesthesia Plan Discussed Final Anesthetic Review Family History of Problems with Anesthesia: No History of Problems with Anesthesia: No ASA Class: II Final Preanesthetic Review: Meds/Allgs Chart Reviewed, Consent Obtained/Reviewed and Anes Risks/Benef Reviewed Patient Risk: Low Procedure Risk: Low Anesthetic Plan Anesthetic Plan: MAC: Disposition: Standard PACU
[2022-11-06 09:41] VITALS: BP 81/54; PULSE 51; RESP 16; TEMP 36.2; O2SAT 94
--- NOTE | 2022-11-06 09:44 | P.BOP_ITS ---
Brief Operative Note Date of Service: 11/06/22 Pre-op diagnosis: Screening Post-op diagnosis: other (Colon polyp) Procedure: Colonoscopy to the cecum and TI with biopsy and removal of polyp Surgeon: Willie Ugarte Anesthesia: MAC Was an Registered Midwife used for this Procedure?: No Estimated blood loss (mL): 2.0 Pathology: other (A. Transverse colon polyp) Condition: stable Disposition: PACU
[2022-11-06 09:56] VITALS: BP 94/59; PULSE 49; RESP 16; O2SAT 99
[2022-11-06 10:10] VITALS: BP 131/77; PULSE 57; RESP 20; TEMP 36.7; O2SAT 99
--- NOTE | 2022-11-06 10:10 | OP_ITS ---
DATE OF SERVICE: 11/06/2022 SURGEON: Willie Ugarte MD INDICATIONS: The patient presents for evaluation of colorectal cancer screening and personal history of tubular adenoma of the colon. Full consent has been obtained from him for this, including risks of bleeding and perforation. PREOPERATIVE DIAGNOSIS: Colorectal cancer screening and personal history of tubular adenoma of the colon. POSTOPERATIVE DIAGNOSIS: PROCEDURE PERFORMED: Colonoscopy to the cecum and terminal ileum with biopsy removal of polyp. ESTIMATED BLOOD LOSS: COMPLICATIONS: ANESTHESIA: Monitored anesthesia care. ASSISTANTS: SPECIMENS: POSTOPERATIVE DIAGNOSES: Colorectal cancer screening and personal history of tubular adenoma of the colon, small colon polyp, diverticulosis, and internal hemorrhoids. DESCRIPTION OF PROCEDURE: The patient was placed in the left lateral decubitus position. The digital rectal exam revealed no abnormalities. The Olympus video pediatric colonoscope was entered into the rectum and advanced easily to the cecum. Once in the cecum, I did identify normal-appearing cecal pouch with appendiceal orifice and a normal-appearing ileocecal valve. The terminal ileum was cannulated and appeared normal. The scope was withdrawn back in the colon. The entire cecum and ileocecal valve appeared normal. The scope was slowly withdrawn assessing all mucosal surfaces carefully. Preparation was excellent. In the transverse colon was a flat, approximately 3 or 4 mm polyp, which was biopsied and completely removed with a cold biopsy forceps. I did not visualize any other polyps, colitis, nor angiodysplasia. There was a mild amount of sigmoid diverticulosis. In the rectum, scope was retroflexed visualizing internal hemorrhoids, but no other pathology. The rectal mucosa appeared normal. The scope was straightened and withdrawn from the patient, he tolerated the procedure well and was returned to the recovery area in stable condition. IMPRESSION: 1. Small colon polyp. 2. Diverticulosis. 3. Internal hemorrhoids. PLAN: The results of the biopsies will be checked. I would recommend a repeat colonoscopy in 5 years for further surveillance. He would otherwise see me on a p.r.n. basis. Willie Ugarte MD RMJori/URSZULA / [phone]
--- NOTE | 2022-11-06 10:40 | HO.POSTANES ---
Post Anesthesia Evaluation Post Anesthesia Evaluation Date of Service: 11/06/22 Vital Signs: Vital Signs Temp Pulse Resp BP Pulse Ox O2 Del Method O2 Flow Rate 11/06/22 10:10 98.1 F 57 20 131/77 99 Room Air 11/06/22 09:56 49 L 16 94/59 L 99 Nasal Cannula 2 11/06/22 09:41 97.2 F 51 16 81/54 L 94 Room Air 11/06/22 07:55 97.5 F 58 18 124/73 97 Room Air Anesthesia: Monitored Mental Status: Awake Pain Control: Satisfactory Nausea/Vomiting: None Hydration: Adequate Anesthesia-Related Issues: No Anes. Related Issues
== END 2022-11-06 11:17 | disposition home or self-care (01) ==
PROVIDERS: PCP Internal Medicine; Visit Provider Internal Medicine
PROC: 0DJD8ZZ Inspection of Lower Intestinal Tract, Via Natural or Artificial Opening Endoscopic (ICD-10-PCS; CPT 45378; principal; 2022-11-06 08:40)
DX: Z12.11 Encounter for screening for malignant neoplasm of colon (principal); D12.3 Benign neoplasm of transverse colon; K57.30 Diverticulosis of large intestine without perforation or abscess without bleeding; K64.8 Other hemorrhoids; Z86.010 Personal history of colon polyps; E11.9 Type 2 diabetes mellitus without complications; E78.5 Hyperlipidemia, unspecified; E80.6 Other disorders of bilirubin metabolism; Z79.84 Long term (current) use of oral hypoglycemic drugs; Z79.82 Long term (current) use of aspirin; Z79.899 Other long term (current) drug therapy; Z87.891 Personal history of nicotine dependence
CPT/HCPCS: 45380; 82947; 88305

== ENCOUNTER 2023-01-30 08:12 | Outpatient (REF) | payer OTHER, SELFPAY ==
[2023-01-30 08:34] LABS: MANUAL DIFF FLAG NO
[2023-01-30 09:05] LABS: Basophils Percent Auto 0.3 % (0-2); Eosinophils Absolute Auto 0.1 X10*3/uL (0.0-0.4); Eosinophils Percent Auto 1.3 % (0-4); Hematocrit 43.7 % (42.0-52.0); Imm Gran Abs Auto 0.02 X10*3/uL (0.00-0.03); Imm Gran Pct Auto 0.3 % (0.0-0.4); Lymphocytes Absolute Auto 1.7 X10*3/uL (1.2-4.9); Mean Corpuscular HGB Conc 34.3 g/dl (31.0-36.0); Mean Corpuscular Hemoglobin 29.6 pg (27.0-33.0); Mean Corpuscular Volume 86.2 fL (80.0-98.0); Mean Platelet Volume 11.4 fL (9.4-12.4); Monocytes Absolute Auto 0.6 X10*3/uL (0.1-1.2); Monocytes Percent Auto 10.2 % (2-11); Neutrophils Absolute Auto 3.7 x10*3/uL (2.0-8.3); Neutrophils Percent Auto 59.9 % (45-73); Platelet Count 161 X10*3/uL (160-400); Red Blood Count 5.07 X10*6/uL (4.60-5.80); Red Cell Distribution Width 11.9 % (11.0-16.0); White Blood Count 6.2 X10*3/uL (4.8-10.8)
[2023-01-30 09:26] LABS: Estimated Average Glucose 154 mg/dL
[2023-01-30 09:31] LABS: Creatinine Urine 215.53 mg/dL; Microalbum/Creatinine Ratio Ur 20.4 ug/mg cr (<30)
[2023-01-30 09:43] LABS: Alanine Aminotransferase 16 U/L (0-40); Albumin Level 4.3 g/dL (3.5-5.0); Alkaline Phosphatase 87 U/L (39-117); Anion Gap 10 (12-20); Aspartate Amino Transferase 17 U/L (5-37); Bilirubin Total 1.5 mg/dL (0.0-1.0); Blood Urea Nitrogen 10 mg/dL (9-16); Calcium 9.4 mg/dL (8.4-10.2); Carbon Dioxide 28 mmol/L (22-29); Chloride 106 mmol/L (96-108); Cholesterol 114 mg/dL (<200); Estimated Glomerular Filt Rate > 60; Glucose Fasting 151 mg/dL (60-99); HDL Cholesterol 42 mg/dL (>40); LDL Cholesterol Calculated 54 mg/dL (<100); Potassium 4.1 mmol/L (3.3-5.1); Sodium 140 mmol/L (135-145); Total Protein 7.3 g/dL (6.5-8.0); Triglycerides 91 mg/dL (<150)
[2023-01-30 09:51] LABS: Vitamin D 25-OH Total 23.6 ng/mL (>30)
[2023-01-30 09:57] LABS: Appearance Urine Clear; Color Urine Dark Yellow; Glucose Urine UA Negative (Negative); Leukocyte Esterase Urine Negative (Negative); Nitrite Urine Negative (Negative); PH 5.5 (5.0-9.0); Specific Gravity - Urine 1.025 (1.005-1.025); Urine Blood Negative (Negative); Urine Ketones Trace mg/dL (Negative); Urine Protein Negative (Neg-Trace)
== END 2023-01-30 08:13 | disposition home or self-care (01) ==
LOC: HO.LAB 08:12
PROVIDERS: PCP Internal Medicine; Visit Provider Internal Medicine
DX: E11.9 Type 2 diabetes mellitus without complications (principal); E78.00 Pure hypercholesterolemia, unspecified; E55.9 Vitamin D deficiency, unspecified; R30.0 Dysuria; I10 Essential (primary) hypertension
CPT/HCPCS: 36415; 80053; 80061; 81003; 82043; 82306; 82570; 83036; 84443; 85025

== ENCOUNTER 2023-02-05 10:45 | Outpatient (AMB) | payer OTHER, SELFPAY ==
--- NOTE | 2023-02-05 10:53 | MHC.OFFVIS ---
Intake Vital Signs 02/05/23 10:55 Height 5 ft 9 in BP 134/84 Blood Pressure Location Lt brachial Position Sitting Pulse 66 Pulse Source Pulse Oximeter Intake Visit Reasons: f/u pituitary adenoma Intake Note: Patient present today for pituitary adenoma follow up visit. 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 He feels well, he reports his libido is very good with cabergoline 0.25 mg once a week. But he can manage. He is currently is taking cabergoline 0.25 every friday. ual He is feeling well, He has increased shaving frequency. He also has increased sexual desire which is sometimes disturbing He denies cold or heat intolerance, weight gain or loss, constipation or diarrhea, dry skin, tremors, palpitations, Denies sweating, anxiety, denies insomnia, Denies fatigue, cognitive dysfunction, improved erectile dysfunction, normal libido, Denies diplopia, decrease peripheral vision, headache, denies dizziness, polyuria, polydipsia, nocturia. 08/24/18 MRI Sella There is a stable appearing 8 mm focus of soft tissue along the undersurface of the pituitary gland resulting in a downward concave margin of the sellar floor that protrudes into the posterior aspect of the intrasphenoid sinus septum as demonstrated on the April 14, [address] Interval History. He saw the Neurosurgeon Dr Herve Avalos, and the ENT Dr foreman, they evaluated him for the possibility of need of surgical intervention in a 8 mm soft tissue structure arising from the sphenoid. I received the consultation from the neurosurgeon , she reviewed all images, and she agrees that the pituitary gland does not have any pathology and that the sella floor is intact and the stalk is not deviated. He has PMH of diabetes, dyslipidemia, HTN, CAD 12/14/2019 MRI sella FINDINGS: Midline infrasellar soft tissue abnormality measuring approximately 9 x 7 x 6 mm in size is relatively stable with decreased differential enhancement relative to the pituitary gland superiorly. The infundibulum is midline in position. No diffusion abnormalities are identified to suggest an acute infarct. The ventricles are normal in size. No mass effect or midline shift is seen. Nonspecific mild white matter signal changes are stable. No extra-axial fluid collections are noted. The brainstem and cerebellum are normal. On postcontrast imaging, there is no abnormal parenchymal or leptomeningeal enhancement. The craniovertebral junction and marrow signal are normal. The mastoid air cells are aerated. There is mild to moderate mucosal thickening in the ethmoid and maxillary sinuses, more so on the left side. Laboratory Tests 04/07/20 04/07/20 04/07/20 08:13 08:13 08:36 TSH 2.58 Prolactin 15.0 Total Testosterone Fr Testosterone Di fredi ACTH 39 04/07/20 08:36 TSH Prolactin Total Testosterone 294 Fr Testosterone Di fredi 60.9 ACTH Laboratory Tests 01/29/19 09:50 Prolactin 10.3 Laboratory Tests 07/21/18 12/10/18 12/10/19 09:40 08:35 09:25 TSH 1.26 Free T4 0.96 TSH 3rd Generation 1.81 FSH Luteinizing Hormon e Prolactin Total Testosterone Free Testosterone 65.1 Fr Testosterone Di fredi Sex Hormone Bind G lob Somatomedin-C Cortisol 12/10/19 12/10/19 09:25 09:25 TSH Free T4 TSH 3rd Generation FSH 6.1 Luteinizing Hormon e 3.5 Prolactin 15.2 Total Testosterone 337 Free Testosterone Fr Testosterone Di fredi 49.9 Sex Hormone Bind G lob 27 Somatomedin-C 122 Cortisol 9.6 No dizziness, good libido, no acromegalic , no change in vision [facility] Medical History Erectile dysfunction Hypotestosteronism Hyperbilirubinemia Elevated PSA Pure hypercholesterolemia Benign essential hypertension CAD (coronary artery disease) Dyslipidemia Diabetes type 2, controlled Obesity (BMI 30-39.9) Pituitary tumor Hyperprolactinemia Surgical History History of colonoscopy Hx of angioplasty Family History Father Prostate cancer Mother CVD (cardiovascular disease) Social History Household Members: Family and Children Housing: House Alcohol intake: never Patient Tobacco Use Status: Former Tobacco user Tobacco use type: Cigarette Cigarette Packs Per Day: 1 Cigarettes Per Day: 20.0 e-Cigarette/Vaping Use: Never Used Second Hand Smoke Exposure: Yes service: No Current occupational status: unemployed Cognitive needs: No Hearing needs: No Vision needs: No Physical Exam Vital Signs: Last Vital Signs Pulse 66 02/05/23 10:55 BP 134/84 02/05/23 10:55 Assessment & Plan Assessment & Plan (1) Pituitary tumor: Code(s): D49.7 - Neoplasm of unspecified behavior of endocrine glands and other parts of nervous system Plan: This 61-year-old white male with 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 His gonadal axis is intact. His prolactin has normalized on cabergoline an MRI shows stability in the size of the adenoma The plan is to continue current therapy and follow with prolactin Will check prolactin if remains normal, may consider drug holiday. If prolactin is increasing then will obtain repeat MRI. If patient needs to remain on cabergoline long-term, will ask Cardiology perform echocardiogram to rule out valvular disease Orders: Orders Prolactin Today D49.7 - Neoplasm of unspecified behavior of endocrine glands and other parts of nervous system Coding Level of Care Code Est Pt Level 3 (76459) Diagnoses Pituitary tumor D49.7
[2023-02-05 10:55] VITALS: BP 134/84; PULSE 66
== END 2023-02-05 14:54 | disposition home or self-care (01) ==
PROVIDERS: PCP Internal Medicine; Visit Provider Internal Medicine Endocrinology, Diabetes & Metabolism
DX: D49.7 Neoplasm of unspecified behavior of endocrine glands and other parts of nervous system (principal)
CPT/HCPCS: 99213

== ENCOUNTER → 2023-02-05 10:45 | Outpatient (BNVA) | payer OTHER, SELFPAY | PROVIDERS: PCP Internal Medicine; Visit Provider Internal Medicine Endocrinology, Diabetes & Metabolism | DX: D49.7 Neoplasm of unspecified behavior of endocrine glands and other parts of nervous system (principal) | CPT/HCPCS: 99212 ==

== ENCOUNTER 2023-02-05 15:46 | Outpatient (AMB) | payer OTHER, SELFPAY ==
--- NOTE | 2023-02-05 15:47 | A.OFFPC_ITS ---
Vital Signs 02/05/23 15:48 Height 5 ft 9 in Weight 235 lb 8 oz BMI 34.8 BP 132/86 Blood Pressure Location Lt brachial Position Sitting Pulse 66 Pulse Source Pulse Oximeter Pulse Oximetry (%) 96 Oxygen Delivery Method Room Air Intake Visit Reasons: follow up labs Nursing Aide Required: No Accompanied by: Self / Same As Patient Allergies No Known Allergies Allergy (Verified 02/05/23 16:22) Medication List - Last Reconciled 02/05/23 by Martin Curry MD aspirin 81 mg PO DAILY atorvastatin 20 mg PO DAILY blood pressure monitor As directed - take BP once daily as instructed blood pressure test kit-large As directed blood sugar diagnostic (FreeStyle Lite Strips) DIRECTED-TEST 3 TIMES A DAY - DX: E11.9 blood-glucose meter (FreeStyle Lite Meter kit) As directed cabergoline 0.25 mg (1/2 x 0.5 mg) PO QWEEK lancets (FreeStyle Lancets) As directed- test 3 times a day - Dx: E11.9 linagliptin (Tradjenta) 5 mg PO QAM 30 days metformin 500 mg PO BID metoprolol succinate ER 50 mg PO DAILY nitroglycerin 0.4 mg sublingual DIRECTED semaglutide 0.25 mg (0.187 mL) subcut QWEEK 4 weeks sildenafil 100 mg PO DAILY PRN 30 days Tobacco use date assessed: 02/05/23 Fall risk assessment: No Falls in past year Last assessed Fall Risk: 02/05/23 Dental Screening Dental Screen Date: 02/05/23 Did you have a dental visit in the last 12 months?: No Did you have a dental problem in the last 6 months where you did not have access to dental care?: No Was dental information given to patient?: No HPI follow up labs HPI Details Patient comes in today for his follow up visit States that he feels okay States that he did not bulk picker his prescription for Tradjenta when it was prescribed last time as his insurance was charging him a very high co-pay for his medication so he is currently only taking Metformin for his diabetes He denies any headaches or dizziness Denies any chest pains, no SOB No nausea/vomiting, no abdominal pain No change in bowel habits noted Needs a few of his Rx refilled Had his follow up labs done last week - to discuss his results; would also like to know if his PSA and testosterone level were rechecked and if not, would like to get these done right away [facility] Medical History Erectile dysfunction Hypotestosteronism Hyperbilirubinemia Elevated PSA Pure hypercholesterolemia Benign essential hypertension CAD (coronary artery disease) Dyslipidemia Diabetes type 2, controlled Obesity (BMI 30-39.9) Pituitary tumor Hyperprolactinemia Surgical History History of colonoscopy Hx of angioplasty Family History Father Prostate cancer Mother CVD (cardiovascular disease) Social History Household Members: Family and Children Housing: House Alcohol intake: never Patient Tobacco Use Status: Former Tobacco user Tobacco use type: Cigarette Cigarette Packs Per Day: 1 Cigarettes Per Day: 20.0 e-Cigarette/Vaping Use: Never Used Second Hand Smoke Exposure: Yes service: No Current occupational status: unemployed Cognitive needs: No Hearing needs: No Vision needs: No Questionnaire PHQ-9 Over the last 2 weeks, how often have you been bothered by any of the following problems? 1. Little interest or pleasure in doing things: not at all 2. Feeling down, depressed, or hopeless: not at all 3. Trouble falling or staying asleep, or sleeping too much: not at all 4. Feeling tired or having little energy: not at all 5. Poor appetite or overeating: not at all 6. Feeling bad about yourself - or that you are a failure or have let yourself or your family down: not at all 7. Trouble concentrating on things, such as reading the newspaper or watching television: not at all 8. Moving or speaking so slowly that other people could have noticed. Or the opposite - being so fidgety or restless that you have been moving around a lot more than usual: not at all 9. Thoughts that you would be better off or of hurting yourself in some way: not at all Total score: 0 Depression Screening Interpretation: Negative Depression Screening Done: Yes [id number] - PHQ-9 Billing: Yes Source: Developed by Drs. Willie Brand, Lincoln Bah and colleagues, with an educational tricia from [employer]. Thrive Questionnaire Date Thrive assessed: 02/05/23 I am a: Patient What is your living situation today?: I have a steady place to live Within the past 12 months, did the food you bought not last and you didn't have the money to get more?: Never true Within the past 12 months, did you worry whether your food would run out before you got money to buy more?: Never true Do you have trouble paying for medicines?: No Do you have trouble getting transportation to medical appointments?: No Do you have trouble paying your heating and electricity bill?: No Do you have trouble taking care of your child, family member or friend?: No Do you have trouble with day-to-day activities such as bathing, preparing meals, shopping, managing finances, etc.?: No Are you currently unemployed and looking for a job?: No Are you interested in more education?: No Please select the resources that you would like help with: None Currently or been in a relationship where the following occur: no concerns reported AUDIT C Alcohol Use Questionnaire (AUDIT-C) 1. How often do you have a drink containing alcohol?: Never 3. How often do you have six or more drinks on one occasion?: Never Total Score: 0 CHICHO-7 AMB Questionnaire CHICHO-7 Date CHICHO - 7 assessed: 02/05/23 Feeling nervous, anxious, or on edge: 0 = Not at all Not being able to stop or control worryin = Not at all Worrying too much about different things: 0 = Not at all Trouble relaxin = Not at all Being so restless that it is hard to sit still: 0 = Not at all Becoming easily annoyed or irritable: 0 = Not at all Feeling afraid as if something awful might happen: 0 = Not at all Total CHICHO-7 score (0-4 normal; 5-9 mild; 10-14 moderate; 15-21 severe): 0 Source: Developed by Drs. Willie Brand, Lincoln Bah and colleagues, with an educational tricia from [employer]. Review of Systems Const Denies chills, Denies fatigue, Denies fever(s) and Denies headache(s) ENT Denies dysphagia, Denies dizziness, Denies otalgia, Denies headache(s), Denies odynophagia and Denies sore throat Card Denies chest pain, Denies palpitations and Denies dyspnea Resp Denies cough and Denies dyspnea GI Denies abdominal pain, Denies constipation, Denies dysphagia, Denies heartburn, Denies diarrhea, Denies nausea, Denies odynophagia and Denies vomiting Reports erectile dysfunction, Denies dysuria, Denies nocturia and Denies urinary frequency Skin/Breast Denies rash Neuro Denies dizziness and Denies headache(s) Endo Denies fatigue and Denies palpitations Physical exam (Primary Care) Vital Signs: Last Vital Signs Pulse 66 02/05/23 15:48 BP 132/86 02/05/23 15:48 Pulse Ox 96 02/05/23 15:48 Oxygen Delivery Method Room Air 02/05/23 15:48 BMI result Body Mass Index 34.8 Tobacco/Smoking Status: Tobacco use Status Tobacco use date assessed 02/05/23 02/05/23 15:53 Patient Tobacco Use Status Former Tobacco user 02/05/23 15:53 Tobacco use type Cigarette 02/05/23 15:53 e-Cigarette/Vaping Use Never Used 02/05/23 15:53 PHQ-9: PHQ-9 Score PHQ-9: Total score 0 02/10/23 05:00 Depression Screening Interpretation: Negative Thrive Assessment: Date of Thrive Assessment Date Thrive assessed 02/05/23 02/05/23 15:53 Currently or been in a relationship where the following occur: no concerns reported Const General: no acute distress and alert HENMT Ears: TM's normal bilaterally and EAC's normal Throat: Yes posterior oropharynx normal and Yes tonsils normal (no TP congestion) Neck Neck: Yes no lymphadenopathy and Yes supple Resp Auscultation: clear to auscultation bilaterally, no rales and no wheezes Cardio Rate: regular rate Rhythm: regular rhythm Heart sounds: no murmurs GI Palpation (GI): Soft to palpation and nontender Auscultation: normal bowel sounds Skin Rashes: no rashes Extrem General: Yes no clubbing, cyanosis or edema Results Reviewed Results Reviewed: Laboratory Tests 01/30/23 01/30/23 01/30/23 08:24 08:24 08:33 WBC 6.2 Hgb 15.0 Hct 43.7 Plt Count 161 Sodium 140 Potassium 4.1 Creatinine 0.79 Estimated GFR > 60 Fasting Glucose 151 H Hemoglobin A1c % 7.0 H Calcium AST ALT Triglycerides 91 Cholesterol 114 LDL Cholesterol, Calc 54 HDL Cholesterol 42 25-OH Vitamin D Total 23.6 L TSH 2.40 Ur Specific Gerald 1.025 Urine Protein Negative Urine Glucose (UA) Negative Urine Blood Negative Microalb/Creat Ratio 20.4 01/30/23 01/30/23 08:33 08:33 WBC Hgb Hct Plt Count Sodium Potassium Creatinine Estimated GFR Fasting Glucose Hemoglobin A1c % Calcium 9.4 AST 17 ALT 16 Triglycerides Cholesterol LDL Cholesterol, Calc HDL Cholesterol 25-OH Vitamin D Total TSH Ur Specific Gerald Urine Protein Urine Glucose (UA) Urine Blood Microalb/Creat Ratio Assessment and Plan Assessment & Plan (1) Diabetes mellitus: Code(s): E11.9 - Type 2 diabetes mellitus without complications Qualifiers: Diabetes mellitus complication status: without complication Diabetes mellitus terminal superintendent insulin use: without terminal superintendent use Diabetes mellitus type: type 2 Qualified Code(s): E11.9 - Type 2 diabetes mellitus without complications Plan: HgbA1c was at 7.0% on his labs done last week (was at 7.7% a few months ago) - goal is < 7.0% Reinforced diabetic diet Continue Metformin 500 mg BID Wanted to try Ozempic previously (more to help him lose weight) but his insurance would not cover the Rx unless he has tried some other formulary alternatives first - was then started on Tradjenta 5 mg QD, which he did not get as his insurance was also charging him a very high co-pay for this medication Patient currently decided to continue on Metformin monotherapy alone as his blood sugar seems to be now under better control (2) CAD (coronary artery disease): Comment: 1 stent, no [place] Code(s): I25.10 - Atherosclerotic heart disease of [place] coronary artery without angina pectoris Qualifiers: Associated angina: without angina Coronary Disease-Associated Artery/Lesion type: [place] artery [place] vs. transplanted heart: [place] heart Qualified Code(s): I25.10 - Atherosclerotic heart disease of [place] coronary artery without angina pectoris Plan: Asymptomatic - patient has NTG 0.4 mg sublingual tablets to take PRN for chest? pain although he states that he has not had to take them in a while now Continue low dose Aspirin 81 mg QD and Metoprolol ER 50 mg QD Follow-up with cardiology (Dr. Laws) as scheduled Had a repeat Dobutamine stress test done a couple of years ago by cardiology and was reportedly advised that there are no acute abnormalities and to continue with aggressive risk reduction for primary prevention (3) Pure hypercholesterolemia: Code(s): E78.00 - Pure hypercholesterolemia, unspecified Plan: Results of his labs done last week reviewed and discussed with patient Reinforced low cholesterol diet Continue Atorvastatin 20 mg QD Will recheck his labs and fasting lipids in 4 months for follow up (4) Benign essential hypertension: Code(s): I10 - Essential (primary) hypertension Plan: Reinforced low sodium diet - goal is systolic BP of at least 130 mm or less Continue Metoprolol ER 50 mg QD Patient reminded to continue monitoring his blood pressure regularly (5) Hyperprolactinemia: Code(s): E22.1 - Hyperprolactinemia Plan: Continue 0.25 mg of Cabergoline weekly His prolactin level was normal when last checked in June 2022 Follow up with endocrinology as scheduled (6) Pituitary tumor: Code(s): D49.7 - Neoplasm of unspecified behavior of endocrine glands and other parts of nervous system Plan: Patient has an incidentally found questionable pituitary tumor; repeat MRI sella protocol did not show any pituitary tumor or abnormality, with normal stalk Neurosurgeon reviewed images and agreed that the pituitary gland does not have any pathology and that the sella floor is intact and the stalk is not deviated Repeat MRI in November 2019 showed that the midline infrasellar soft tissue abnormality measuring approximately 9 x 7 x 6 mm in size is relatively stable Both ENT and neurosurgery recommended NO surgery and the current plan is still continued observation Follow-up with endocrinology as scheduled (7) Hyperbilirubinemia: Code(s): E80.6 - Other disorders of bilirubin metabolism Plan: His total bilirubin level remains elevated but his direct bilirubin was normal on his recent labs - possible [place] syndrme Patient has been and remains asymptomatic Abdominal US done a couple of years ago came back normal Repeat abdominal US done in late April 2022 revealed findings of hepatic steatosis; the liver is enlarged measuring 18.0 cm.and liver contour is normal. There is diffuse increased liver parenchymal echogenicity consistent with hepatic steatosis. There is focal fatty sparing along the gallbladder fossa. No focal hepatic lesion. There is no intrahepatic biliary duct dilatation seen Patient is advised again that losing weight may help get this improved gradually (8) Renal cyst, acquired, right: Code(s): N28.1 - Cyst of kidney, acquired Plan: Patient also had some thinly septated cysts seen in the right mid to upper kidney, which have increased in size compared to 04/26/2019 and further evaluation with renal mass protocol CT or MRI without and with contrast was recommended An abdominal MRI done a couple of months ago revealed (+) bilateral Bosniak 1 and Bosniak 2 renal cysts for which NO follow up imaging are recommended (9) Erectile dysfunction: Code(s): N52.9 - Male erectile dysfunction, unspecified Qualifiers: Erectile dysfunction type: unspecified Qualified Code(s): N52.9 - Male erectile dysfunction, unspecified Plan: Continue Viagra 100 mg QD PRN as instructed Per request, will send him for some additional labs to recheck his serum PSA and serum testosterone level (10) Obesity (BMI 30-39.9): Code(s): E66.9 - Obesity, unspecified Plan: Reinforced diet/exercise as tolerated/lose weight Plan Follow up in 4 months Orders: Orders Prostate Specific Antigen 02/07/23 N40.0 - Benign prostatic hyperplasia without lower urinary tract symptoms Complete Blood Count Auto Diff 4 Months I10 - Essential (primary) hypertension TSH reflex Free T4 4 Months E78.00 - Pure hypercholesterolemia, unspecified Microalbumin, Random (w Creat) 4 Months E11.9 - Type 2 diabetes mellitus without complications Testosterone, Free/Total 02/07/23 R79.89 - Other specified abnormal findings of blood chemistry Lipid Panel 4 Months E78.00 - Pure hypercholesterolemia, unspecified Comprehensive [place]. Panel Fast 4 Months E78.00 - Pure hypercholesterolemia, unspecified Hemoglobin A1c 4 Months E11.9 - Type 2 diabetes mellitus without complications UA CC w/rflx Micro + Cult 4 Months R30.0 - Dysuria Vitamin D 25-OH Total 4 Months E55.9 - Vitamin D deficiency, unspecified Medications: New tadalafil administer approximately 30min before sexual activity; do not use more than 1 dose per 24hrs 20 mg PO DAILY 30 days PRN 30 tabs 1RF sexual activity Refilled metoprolol succinate ER 50 mg PO DAILY 90 tabs 1RF I10 - Essential (primary) hypertension metformin 500 mg PO BID 180 tabs 1RF Discontinued sildenafil Take 30 minutes to 4 hours before activity Discontinued Reason: Doctor's Order 100 mg PO DAILY 30 days PRN 30 tabs 3RF sexual activity N52.9 - Male erectile dysfunction, unspecified semaglutide for 4 weeks Discontinued Reason: Patient no longer taking 0.25 mg (0.187 mL) subcut QWEEK 4 weeks 1.5 mL 3RF linagliptin (Tradjenta) Discontinued Reason: Patient no longer taking 5 mg PO QAM 30 days 30 tabs 3RF Coding Level of Care Code Est Pt Level 4 (95279) Diagnoses Type 2 diabetes mellitus without complication, without long-term current use of insulin E11.9 Diabetes mellitus complication status: without complication Diabetes mellitus terminal superintendent insulin use: without alf use Diabetes mellitus type: type 2 Coronary artery disease involving [place] coronary artery of [place] heart without angina pectoris I25.10 Associated angina: without angina Coronary Disease-Associated Artery/Lesion type: [place] artery [place] vs. transplanted heart: [place] heart Pure hypercholesterolemia E78.00 Benign essential hypertension I10 Hyperprolactinemia E22.1 Pituitary tumor D49.7 Hyperbilirubinemia E80.6 Renal cyst, acquired, right N28.1 Erectile dysfunction, unspecified erectile dysfunction type N52.9 Erectile dysfunction type: unspecified Obesity (BMI 30-39.9) E66.9
[2023-02-05 15:48] VITALS: BP 132/86; PULSE 66; O2SAT 96; BMI 34.8
== END 2023-02-05 16:38 | disposition home or self-care (01) ==
LOC: HO.HMGH 15:46
PROVIDERS: PCP Internal Medicine; Visit Provider Internal Medicine
DX: E11.9 Type 2 diabetes mellitus without complications (principal); E22.1 Hyperprolactinemia; I25.10 Atherosclerotic heart disease of native coronary artery without angina pectoris; E78.00 Pure hypercholesterolemia, unspecified; I10 Essential (primary) hypertension; D49.7 Neoplasm of unspecified behavior of endocrine glands and other parts of nervous system; E80.6 Other disorders of bilirubin metabolism; N28.1 Cyst of kidney, acquired; N52.9 Male erectile dysfunction, unspecified; E66.9 Obesity, unspecified
CPT/HCPCS: 99214

== ENCOUNTER 2023-02-07 11:56 | Outpatient (REF) | payer OTHER, SELFPAY ==
[2023-02-07 13:27] LABS: Prostate Specific Antigen 0.85 ng/mL (<0.05-4.0)
[2023-02-07 13:37] LABS: Appearance Urine Clear; Color Urine Yellow; Glucose Urine UA Negative (Negative); Leukocyte Esterase Urine Negative (Negative); Nitrite Urine Negative (Negative); PH 5.5 (5.0-9.0); Specific Gravity - Urine 1.025 (1.005-1.025); Urine Blood Negative (Negative); Urine Ketones Trace mg/dL (Negative); Urine Protein Negative (Neg-Trace)
[2023-02-08 07:28] LABS: Prolactin 11.3 ng/mL (2.0-18.0)
[2023-02-17 11:04] LABS: Testosterone, Free 60.3 pg/mL (35.0-155.0); Testosterone, Total 267 ng/dL (250-1100)
== END 2023-02-07 11:57 | disposition home or self-care (01) ==
LOC: HO.LAB 11:56
PROVIDERS: PCP Internal Medicine; Referring Provider Internal Medicine; Visit Provider Internal Medicine Endocrinology, Diabetes & Metabolism
DX: Z12.5 Encounter for screening for malignant neoplasm of prostate (principal); R79.89 Other specified abnormal findings of blood chemistry; N40.0 Benign prostatic hyperplasia without lower urinary tract symptoms; R30.0 Dysuria; D49.7 Neoplasm of unspecified behavior of endocrine glands and other parts of nervous system
CPT/HCPCS: 36415; 81003; 84146; 84153; 84402; 84403

== ENCOUNTER 2023-03-18 06:44 | Outpatient (REF) | payer OTHER, SELFPAY ==
[2023-03-19 22:43] LABS: Prolactin 21.8 ng/mL (2.0-18.0)
== END 2023-03-18 06:45 | disposition home or self-care (01) ==
LOC: HO.LAB 06:44
PROVIDERS: PCP Internal Medicine; Visit Provider Internal Medicine Endocrinology, Diabetes & Metabolism
DX: Z13.89 Encounter for screening for other disorder (principal)
CPT/HCPCS: 36415; 84146